=== PATIENT | male | born 1985 | race Caucasian/White ===

== ENCOUNTER 2019-12-30 16:49 | Emergency (ER) | payer OTHER, SELFPAY ==
--- NOTE | 2019-12-30 17:08 | PC.NURSE ---
PT refusing to change lead, pt demanding to see provider. Provider notified. Pt denies SI, states he does not know why he is here. Pt admits to using drugs eariler today, will not say what he used. Pt appears intoxicated. nodding off, easily awakened.
[2019-12-30 17:18] VITALS: BP 117/69; PULSE 68; RESP 17; TEMP 36.2; O2SAT 93; BMI 26.6
--- NOTE | 2019-12-30 17:22 | PC.NURSE ---
Report given to Mary COLLINS, pt moved to main ed.
--- NOTE | 2019-12-30 17:27 | PC.NURSE ---
pt moved from pod to 6h pt slightly drowsy at this time, but alert. pt states that he relapsed today using heroin after a argument with his girlfriend, pt sates using few bags of heroin denies si/hi. just having a bad day.
--- NOTE | 2019-12-30 17:31 | ED.PSYCH ---
HPI - Psych General Chief Complaint: Psychiatric Symptoms Stated Complaint: CRISIS Time Seen by Provider: 12/30/19 17:25 Source: patient Mode of arrival: EMS Limitations: no limitations History of Present Illness HPI Narrative: 34-year-old male presenting to the ED after his sister called the ambulance reporting that she was worried about him overdose seen on drugs after the the patient relapsed from being sober for 6 months. Reports that he relapsed due to recent separation with his girlfriend. 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 Reports he can stay with a friend august. Denies any SI/HI/auditory or visual hallucinations thoughts of self-injury. Related Data Allergies Allergy/AdvReac Type Severity Reaction Status Date / Time No Known Allergies Allergy Unverified 11/19/19 15:43 Review of Systems Review of Systems: Constitutional : No Fever, No Chills ENT/Mouth : No Ear Pain, No Nasal Congestion, No sore throat Eyes: No Eye Pain, No Swelling, No Redness Cardiovascular : No Chest Pain, No SOB Respiratory : No Cough, No Sputum, No Dyspnea Gastrointestinal : No ingestions, No Nausea, No Vomiting, No Diarrhea, No Hematochezia, No Melena Genitourinary : No Dysuria, No Urinary Frequency, No Hematuria Musculoskeletal : No Myalgias Skin : No Skin Lesions, No rash Neuro : No Weakness, No Numbness, No Paresthesias, No Dizziness, No Headache Psych : No Anxiety, No Depression, No SI/HI, No AVH, No thoughts of self injury Heme/Lymph: No Lymphadenopathy Endocrine : No Polyuria, No Polydipsia Yes all other systems are reviewed and are negative [facility] Past Medical History Attestation statement: The following information was validated with the patient. Medical History No known health problems Social History Social History Advance Directives: No Advance Directives Information Provided: Yes Physical Exam Vital Signs: Vital Signs: Vital Signs Temp Pulse Resp BP Pulse Ox 12/30/19 17:18 97.1 F 68 17 117/69 93 Body Mass Index 26.6 vital signs have been reviewed as normal and appeared to be correct. Blood pressure normal. Heart rate normal. Respiration rate normal. Temperature normal. Oxygen saturation normal. Appearance: Alert. Oriented X3. No acute distress. Head: Normal external exam. Normocephalic. Atraumatic. No Askew signs noted. No raccoon eyes noted Eyes: PERRLA. EOMI. Conjunctiva and sclera normal. Eyelids normal. ENT: EAC normal. TM's Normal. Pharynx normal. Uvula midline. Moist mucous membranes. No trismus noted. No drooling noted. No muffled voice noted. Neck: Normal inspection. Neck supple. FROM. No adenopathy. Thyroid Normal. No meningeal signs. No neck mass noted. CVS: Normal heart rate and rhythm. Heart sound normal. No murmurs noted. Pulses normal throughout. Respiratory: No respiratory distress. Painless inspiration. Breath sounds normal. No wheezes/rales/rhonchi noted. Chest nontender. No accessory muscle usage noted or decreased air movement noted. Abdomen: Soft and nontender. Bowel sounds normal in all 4 quadrants. No distention noted. No organomegaly noted. No visible injury noted. Back: No CVA tenderness. Full range of motion noted. Skin: Skin warm and dry. Normal skin color. Normal skin turgor. No rashes/lesions/lacerations noted. Extremities: No lower extremity edema. Extremities exhibit normal range of motion. Extremities nontender. Neuro: Oriented X 3. No motor deficit. No sensory deficit. Reflexes normal. Course Course Course Narrative: - 34-year-old male presenting to the ED after his sister called the ambulance reporting that she was worried about him overdose seen on drugs after the the patient relapsed from being sober for 6 months. Reports that he relapsed due to recent separation with his girlfriend. 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 Reports he can stay with a friend [employer]. Denies any SI/HI/auditory or visual hallucinations thoughts of self-injury. - I explained to the patient that due to him having to go to work at 18:00 tonight and denying any SI/HI/auditory visual change or thoughts of self-injury. Appears clinically sober. I will discharge him at this time although he returns we will [address] 12 him. Patient understands agrees with this plan. MDM - Psych Restraints Face to Face Assessment: Face to Face Assessment: Current Situation: After assessment of the patient, a review of the pertinent medical record and a discussion with nursing staff, I feel the patient requires a restrain intervention. Reaction To: [] Medical Condition: [] Behavioral State: [] Continued Need: []
== END 2019-12-30 17:40 | disposition home or self-care (01) ==
PROVIDERS: Emergency Provider Internal Medicine; PCP Internal Medicine
DX: F43.0 Acute stress reaction (principal)
CPT/HCPCS: 99282; 99284

== ENCOUNTER 2022-04-23 19:01 | Emergency (ER) | payer OTHER, SELFPAY ==
[2022-04-23 19:44] VITALS: BP 133/91; PULSE 79; RESP 16; TEMP 36.7; O2SAT 98; BMI 25.0
--- NOTE | 2022-04-23 19:45 | ED.PSYCH ---
HPI - Psych General Chief Complaint: Psychiatric Symptoms <CORINNA Driscoll - Last Filed: 04/23/22 19:53> Stated Complaint: crisis <CORINNA Driscoll - Last Filed: 04/23/22 19:53> Time Seen by Provider: 04/23/22 20:12 <CORINNA Driscoll - Last Filed: 04/23/22 19:53> Source: patient <CORINNA Morales - Last Filed: 04/23/22 21:24> Mode of arrival: ambulatory <CORINNA Morales - Last Filed: 04/23/22 21:24> Limitations: no limitations <CORINNA Morales Last Filed: 04/23/22 21:24> History of Present Illness HPI Narrative: A 36-year-old male history of homelessness, anxiety, depression, history of hepatitis C status post treatment, insomnia, PTSD, polysubstance abuse with IV drug abuse last use fentanyl this morning, history of suicidal ideation with attempts presenting to the emergency department with anxiety, depression, suicidal ideation with plan to overdose on fentanyl. Patient tells me that this is triggered by increasing life stressors, patient tells me ?I lost everything ?, he tells me he has been in and out of detox centers, he has been [address] multiple times, he tells me he has no family or support system. Patient reports using opiates however denies alcohol and tobacco use. Patient denies visual, auditory and tactile hallucinations. Denies homicidal ideation. Denies medical complaints at this time <CORINNA Morales Last Filed: 04/23/22 21:24> Related Data Home Medications: Home Medications Medication Instructions Recorded Confirmed lamotrigine 200 mg tablet 1 tab PO DAILY 04/23/22 04/23/22 mirtazapine 15 mg tablet 1 tab PO BEDTIME 04/23/22 04/23/22 trazodone 50 mg tablet 2 tab PO BEDTIME 04/23/22 04/23/22 Previous Rx's Medication Instructions Recorded lamotrigine 200 mg tablet 200 mg PO DAILY #30 tabs 04/24/22 (Lamictal) mirtazapine 15 mg tablet (Remeron) 15 mg PO BEDTIME #30 tabs 04/24/22 trazodone 100 mg tablet 100 mg PO BEDTIME #30 tabs 04/24/22 <CORINNA Driscoll - Last Filed: 04/23/22 19:53> Allergies/Adverse Reactions: Allergies Allergy/AdvReac Type Severity Reaction Status Date / Time No Known Allergies Allergy Verified 04/23/22 19:49 <CORINNA Driscoll - Last Filed: 04/23/22 19:53> Review of Systems Review of Systems: Constitutional : No Weight loss, No Fever, No Chills, No Fatigue, No Malaise ENT/Mouth : No sore throat, No Rhinorrhea Eyes: No Eye Pain, No Swelling, No Redness Cardiovascular : No Chest Pain, No SOB, No Dyspnea on Exertion, No Orthopnea, No Edema, No Palpitations Respiratory : No Cough, No Sputum, No Wheezing Gastrointestinal : No Nausea, No Vomiting, No Diarrhea, No Constipation, No abdominal Pain, No Hematochezia, No Melena Genitourinary : No Dysuria, No Urinary Frequency, No Hematuria, Musculoskeletal : No joint pain, No Myalgias, No Joint Swelling Skin : No Skin Lesions, No rash Neuro : No Weakness, No Numbness, No Dizziness, No Headache Psych : + Anxiety/Panic, + Depression, + SI, No HI All other systems reviewed and are negative <CORINNA Morales - Last Filed: 04/23/22 21:24> Yes all other systems are reviewed and are negative <CORINNA Morales - Last Filed: 04/23/22 21:24> [facility] Past Medical History Attestation statement: The following information was validated with the patient. <CORINNA Morales - Last Filed: 04/23/22 21:24> Source: old records reviewed and nursing notes reviewed <CORINNA Morales - Last Filed: 04/23/22 21:24> Medical History: Medical History No known health problems <CORINNA Driscoll - Last Filed: 04/23/22 19:53> Social History Social History: Social History Advance Directives: No Advance Directives Information Provided: Yes Healthcare Proxy: No Guardian: No <CORINNA Driscoll - Last Filed: 04/23/22 19:53> Physical Exam Vital Signs: Vital Signs: Last Vital Signs Temp 97.7 F 04/24/22 07:55 Pulse 62 04/24/22 07:55 Resp 12 04/24/22 07:55 BP 129/88 04/24/22 07:55 Pulse Ox 96 04/24/22 07:55 O2 Del Method 04/24/22 07:55 BMI result Body Mass Index 25.0 <CORINNA Driscoll - Last Filed: 04/23/22 19:53> Vital Signs: Last Vital Signs Temp 97.7 F 04/24/22 07:55 Pulse 62 04/24/22 07:55 Resp 12 04/24/22 07:55 BP 129/88 04/24/22 07:55 Pulse Ox 96 04/24/22 07:55 O2 Del Method 04/24/22 07:55 BMI result Body Mass Index 25.0 vss <CORINNA Morales - Last Filed: 04/23/22 21:24> Vital Signs: Last Vital Signs Temp 97.7 F 04/24/22 07:55 Pulse 62 04/24/22 07:55 Resp 12 04/24/22 07:55 BP 129/88 04/24/22 07:55 Pulse Ox 96 04/24/22 07:55 O2 Del Method 04/24/22 07:55 BMI result Body Mass Index 25.0 <Chadwick Ferrell MD - Last Filed: 04/24/22 11:23> Appearance: Alert.? Oriented X3.? No acute distress.? Head: Normocephalic, atraumatic, no step-offs or deformities Eyes: Pupils equal, round and reactive to light.? ENT: Pharynx normal.? Neck: Normal inspection.? Neck supple.? CVS: Normal heart rate and rhythm.? Pulses normal.? Respiratory: No respiratory distress.? Breath sounds normal.? Abdomen: Soft and nontender.? Skin: Skin warm and dry.? Normal skin color.? Normal skin turgor.? Extremities: No lower extremity edema.? No calf ttp. 5/5 strength to bilateral upper and lower extremities Neuro: Oriented X 3.? No motor deficit.? No sensory deficit. CN 2-12 intact <CORINNA Morales - Last Filed: 04/23/22 21:24> Course Course Course Narrative: RME - 36 y/o homeless male with history of anxiety/depression, history of SI with attempts in the past, hepatitis C s/p treatment, insomnia, PTSD, polysubstance w/ IVDA last used fentanyl this morning presents to the ER with SI with plan to intentionally overdose. Last used fentanyl this morning. Stopped taking all of his psych meds about a month ago. Just got out of detox last and now feeling more hopeless and helpless after he couldn't be placed into a [facility] rehab. VSS in triage. Labs ordered for medical clearance. Will need to be seen by CARE team. <CORINNA Driscoll - Last Filed: 04/23/22 19:53> Reevaluation(s) Reevaluation #1: CBC appears to be around patient's baseline. Chemistry with no acute electrolyte abnormalities requiring intervention. Urine toxicology positive for opiates, fentanyl, cocaine. Ethanol negative. Patient COVID negative At this time patient will be placed in observation to allow more time to be evaluated by the behavioral health team. At time observation was started patient common cooperative no acute distress will continue to monitor <CORINNA Morales - Last Filed: 04/23/22 21:24> Time: 21:23 <CORINNA Morales - Last Filed: 04/23/22 21:24> Reevaluation #2: seen by crisis will go to detox <Chadwick Ferrell MD - Last Filed: 04/24/22 11:23> Time: 11:23 <Chadwick Ferrell MD - Last Filed: 04/24/22 11:23> Medical Decision Making Medical Decision Making MDM Narrative: 36-year-old male presents with suicidal ideation with anxiety and depression times a few weeks worsening over the past few days. Plan to overdose on fentanyl. Physical examination benign Likely recurrent depression and anxiety. Unlikely metabolic disturbances. Plan medical clearance evaluation by behavioral health team <CORINNA Morales - Last Filed: 04/23/22 21:24> Differential Diagnosis Differential Diagnoses: The differential diagnosis associated with the presentation includes <CORINNA Morales - Last Filed: 04/23/22 21:24> Likely recurrent depression and anxiety. Unlikely metabolic disturbances. <CORINNA Morales - Last Filed: 04/23/22 21:24> Admission/Observation Consideration of admission/observation: Escalation of care including admission/observation considered <CORINNA Morales - Last Filed: 04/23/22 21:24> Consult Healthcare Provider Management of the patient was discussed with: Behavioral Health Provider <CORINNA Morales - Last Filed: 04/23/22 21:24> Lab Data MDM Lab Attestation statement: I reviewed the patient's lab results. <CORINNA Morales - Last Filed: 04/23/22 21:24> Result Diagrams: 04/23/22 20:53 04/23/22 20:53 <CORINNA Driscoll - Last Filed: 04/23/22 19:53> Labs: Lab Results 04/23/22 04/23/22 04/23/22 Range/Units 20:36 20:36 20:53 WBC 9.9 (4.8-10.8) X10*3/uL RBC 4.05 L (4.60-5.80) X10*6/uL Hgb 12.0 L (14.0-18.0) g/dl Hct 36.0 L (42.0-52.0) % MCV 88.9 (80.0-98.0) fL MCH 29.6 (27.0-33.0) pg MCHC 33.3 (31.0-36.0) g/dl RDW 13.7 (11.0-16.0) % Plt Count 204 (160-400) X10*3/uL MPV 8.7 L (9.4-12.4) fL Immature Gran % (Auto) 0.2 (0.0-0.4) % Neut % (Auto) 48.8 (45-73) % Lymph % (Auto) 39.7 (20-40) % Faulkner % (Auto) 9.5 (2-11) % Eos % (Auto) 1.2 (0-4) % Baso % (Auto) 0.6 (0-2) % Lymph # (Auto) 3.9 (1.2-4.9) X10*3/uL Faulkner # (Auto) 0.9 (0.1-1.2) X10*3/uL Eos # (Auto) 0.1 (0.0-0.4) X10*3/uL Baso # (Auto) 0.1 (0.0-0.2) X10*3/uL Abs Immat Gran (auto) 0.02 (0.00-0.03) X10*3/uL Absolute Neuts (auto) 4.8 (2.0-8.3) x10*3/uL Absolute Nucleated RBC 0.000 (0.0-0.012) X10*3/uL Nucleated RBC % (auto) 0.0 (0.0-0.2) /100WBC Sodium (135-145) mmol/L Potassium (3.3-5.1) mmol/L Chloride (96-108) mmol/L Carbon Dioxide (22-29) mmol/L Anion Gap (12-20) BUN (9-16) mg/dL Creatinine (0.5-1.4) mg/dL Estim Creat Clear Calc Estimated GFR Random Glucose (60-115) mg/dL Calcium (8.4-10.2) mg/dL Magnesium (1.6-2.6) mg/dL Total Bilirubin (0.0-1.0) mg/dL Direct Bilirubin (0.0-0.5) mg/dL AST (5-37) U/L ALT (0-40) U/L Alkaline Phosphatase (39-117) U/L Total Protein (6.5-8.0) g/dL Albumin (3.5-5.0) g/dL Urine Opiates Screen POSITIVE H (Not Detect) Urine Fentanyl Screen POSITIVE H (Not Detect) Ur Barbiturates Screen Not Detected (Not Detect) Ur Phencyclidine Scrn Not Detected (Not Detect) Ur Amphetamines Screen Not Detected (Not Detect) U Benzodiazepines Scrn Not Detected (Not Detect) Urine Cocaine Screen POSITIVE H (Not Detect) U Marijuana (THC) Screen Not Detected (Not Detect) Ethyl Alcohol mg/dL COVID-19 (DANILO) Negative (Negative) COVID-19 Clin Com See Note 02/20/23 Range/Units 20:53 WBC (4.8-10.8) X10*3/uL RBC (4.60-5.80) X10*6/uL Hgb (14.0-18.0) g/dl Hct (42.0-52.0) % MCV (80.0-98.0) fL MCH (27.0-33.0) pg MCHC (31.0-36.0) g/dl RDW (11.0-16.0) % Plt Count (160-400) X10*3/uL MPV (9.4-12.4) fL Immature Gran % (Auto) (0.0-0.4) % Neut % (Auto) (45-73) % Lymph % (Auto) (20-40) % Faulkner % (Auto) (2-11) % Eos % (Auto) (0-4) % Baso % (Auto) (0-2) % Lymph # (Auto) (1.2-4.9) X10*3/uL Faulkner # (Auto) (0.1-1.2) X10*3/uL Eos # (Auto) (0.0-0.4) X10*3/uL Baso # (Auto) (0.0-0.2) X10*3/uL Abs Immat Gran (auto) (0.00-0.03) X10*3/uL Absolute Neuts (auto) (2.0-8.3) x10*3/uL Absolute Nucleated RBC (0.0-0.012) X10*3/uL Nucleated RBC % (auto) (0.0-0.2) /100WBC Sodium 140 (135-145) mmol/L Potassium 3.8 (3.3-5.1) mmol/L Chloride 100 (96-108) mmol/L Carbon Dioxide 31 H (22-29) mmol/L Anion Gap 13 (12-20) BUN 9 (9-16) mg/dL Creatinine 0.69 (0.5-1.4) mg/dL Estim Creat Clear Calc 145.9 Estimated GFR > 60 Random Glucose 94 (60-115) mg/dL Calcium 9.0 (8.4-10.2) mg/dL Magnesium 1.7 (1.6-2.6) mg/dL Total Bilirubin 1.5 H (0.0-1.0) mg/dL Direct Bilirubin 0.4 (0.0-0.5) mg/dL AST 17 (5-37) U/L ALT 13 (0-40) U/L Alkaline Phosphatase 60 (39-117) U/L Total Protein 6.0 L (6.5-8.0) g/dL Albumin 3.9 (3.5-5.0) g/dL Urine Opiates Screen (Not Detect) Urine Fentanyl Screen (Not Detect) Ur Barbiturates Screen (Not Detect) Ur Phencyclidine Scrn (Not Detect) Ur Amphetamines Screen (Not Detect) U Benzodiazepines Scrn (Not Detect) Urine Cocaine Screen (Not Detect) U Marijuana (THC) Screen (Not Detect) Ethyl Alcohol < 10 mg/dL COVID-19 (DANILO) (Negative) COVID-19 Clin Com <CORINNA Driscoll - Last Filed: 04/23/22 19:53> Lab Results 04/23/22 04/23/22 04/23/22 Range/Units 20:36 20:36 20:53 WBC 9.9 (4.8-10.8) X10*3/uL RBC 4.05 L (4.60-5.80) X10*6/uL Hgb 12.0 L (14.0-18.0) g/dl Hct 36.0 L (42.0-52.0) % MCV 88.9 (80.0-98.0) fL MCH 29.6 (27.0-33.0) pg MCHC 33.3 (31.0-36.0) g/dl RDW 13.7 (11.0-16.0) % Plt Count 204 (160-400) X10*3/uL MPV 8.7 L (9.4-12.4) fL Immature Gran % (Auto) 0.2 (0.0-0.4) % Neut % (Auto) 48.8 (45-73) % Lymph % (Auto) 39.7 (20-40) % Faulkner % (Auto) 9.5 (2-11) % Eos % (Auto) 1.2 (0-4) % Baso % (Auto) 0.6 (0-2) % Lymph # (Auto) 3.9 (1.2-4.9) X10*3/uL Faulkner # (Auto) 0.9 (0.1-1.2) X10*3/uL Eos # (Auto) 0.1 (0.0-0.4) X10*3/uL Baso # (Auto) 0.1 (0.0-0.2) X10*3/uL Abs Immat Gran (auto) 0.02 (0.00-0.03) X10*3/uL Absolute Neuts (auto) 4.8 (2.0-8.3) x10*3/uL Absolute Nucleated RBC 0.000 (0.0-0.012) X10*3/uL Nucleated RBC % (auto) 0.0 (0.0-0.2) /100WBC Sodium (135-145) mmol/L Potassium (3.3-5.1) mmol/L Chloride (96-108) mmol/L Carbon Dioxide (22-29) mmol/L Anion Gap (12-20) BUN (9-16) mg/dL Creatinine (0.5-1.4) mg/dL Estim Creat Clear Calc Estimated GFR Random Glucose (60-115) mg/dL Calcium (8.4-10.2) mg/dL Magnesium (1.6-2.6) mg/dL Total Bilirubin (0.0-1.0) mg/dL Direct Bilirubin (0.0-0.5) mg/dL AST (5-37) U/L ALT (0-40) U/L Alkaline Phosphatase (39-117) U/L Total Protein (6.5-8.0) g/dL Albumin (3.5-5.0) g/dL Urine Opiates Screen POSITIVE H (Not Detect) Urine Fentanyl Screen POSITIVE H (Not Detect) Ur Barbiturates Screen Not Detected (Not Detect) Ur Phencyclidine Scrn Not Detected (Not Detect) Ur Amphetamines Screen Not Detected (Not Detect) U Benzodiazepines Scrn Not Detected (Not Detect) Urine Cocaine Screen POSITIVE H (Not Detect) U Marijuana (THC) Screen Not Detected (Not Detect) Ethyl Alcohol mg/dL COVID-19 (DANILO) Negative (Negative) COVID-19 Clin Com See Note 04/23/22 Range/Units 20:53 WBC (4.8-10.8) X10*3/uL RBC (4.60-5.80) X10*6/uL Hgb (14.0-18.0) g/dl Hct (42.0-52.0) % MCV (80.0-98.0) fL MCH (27.0-33.0) pg MCHC (31.0-36.0) g/dl RDW (11.0-16.0) % Plt Count (160-400) X10*3/uL MPV (9.4-12.4) fL Immature Gran % (Auto) (0.0-0.4) % Neut % (Auto) (45-73) % Lymph % (Auto) (20-40) % Faulkner % (Auto) (2-11) % Eos % (Auto) (0-4) % Baso % (Auto) (0-2) % Lymph # (Auto) (1.2-4.9) X10*3/uL Faulkner # (Auto) (0.1-1.2) X10*3/uL Eos # (Auto) (0.0-0.4) X10*3/uL Baso # (Auto) (0.0-0.2) X10*3/uL Abs Immat Gran (auto) (0.00-0.03) X10*3/uL Absolute Neuts (auto) (2.0-8.3) x10*3/uL Absolute Nucleated RBC (0.0-0.012) X10*3/uL Nucleated RBC % (auto) (0.0-0.2) /100WBC Sodium 140 (135-145) mmol/L Potassium 3.8 (3.3-5.1) mmol/L Chloride 100 (96-108) mmol/L Carbon Dioxide 31 H (22-29) mmol/L Anion Gap 13 (12-20) BUN 9 (9-16) mg/dL Creatinine 0.69 (0.5-1.4) mg/dL Estim Creat Clear Calc 145.9 Estimated GFR > 60 Random Glucose 94 (60-115) mg/dL Calcium 9.0 (8.4-10.2) mg/dL Magnesium 1.7 (1.6-2.6) mg/dL Total Bilirubin 1.5 H (0.0-1.0) mg/dL Direct Bilirubin 0.4 (0.0-0.5) mg/dL AST 17 (5-37) U/L ALT 13 (0-40) U/L Alkaline Phosphatase 60 (39-117) U/L Total Protein 6.0 L (6.5-8.0) g/dL Albumin 3.9 (3.5-5.0) g/dL Urine Opiates Screen (Not Detect) Urine Fentanyl Screen (Not Detect) Ur Barbiturates Screen (Not Detect) Ur Phencyclidine Scrn (Not Detect) Ur Amphetamines Screen (Not Detect) U Benzodiazepines Scrn (Not Detect) Urine Cocaine Screen (Not Detect) U Marijuana (THC) Screen (Not Detect) Ethyl Alcohol < 10 mg/dL COVID-19 (DANILO) (Negative) COVID-19 Clin Com <CORINNA Morales - Last Filed: 04/23/22 21:24> Lab Results 04/23/22 04/23/22 04/23/22 Range/Units 20:36 20:36 20:53 WBC 9.9 (4.8-10.8) X10*3/uL RBC 4.05 L (4.60-5.80) X10*6/uL Hgb 12.0 L (14.0-18.0) g/dl Hct 36.0 L (42.0-52.0) % MCV 88.9 (80.0-98.0) fL MCH 29.6 (27.0-33.0) pg MCHC 33.3 (31.0-36.0) g/dl RDW 13.7 (11.0-16.0) % Plt Count 204 (160-400) X10*3/uL MPV 8.7 L (9.4-12.4) fL Immature Gran % (Auto) 0.2 (0.0-0.4) % Neut % (Auto) 48.8 (45-73) % Lymph % (Auto) 39.7 (20-40) % Faulkner % (Auto) 9.5 (2-11) % Eos % (Auto) 1.2 (0-4) % Baso % (Auto) 0.6 (0-2) % Lymph # (Auto) 3.9 (1.2-4.9) X10*3/uL Faulkner # (Auto) 0.9 (0.1-1.2) X10*3/uL Eos # (Auto) 0.1 (0.0-0.4) X10*3/uL Baso # (Auto) 0.1 (0.0-0.2) X10*3/uL Abs Immat Gran (auto) 0.02 (0.00-0.03) X10*3/uL Absolute Neuts (auto) 4.8 (2.0-8.3) x10*3/uL Absolute Nucleated RBC 0.000 (0.0-0.012) X10*3/uL Nucleated RBC % (auto) 0.0 (0.0-0.2) /100WBC Sodium (135-145) mmol/L Potassium (3.3-5.1) mmol/L Chloride (96-108) mmol/L Carbon Dioxide (22-29) mmol/L Anion Gap (12-20) BUN (9-16) mg/dL Creatinine (0.5-1.4) mg/dL Estim Creat Clear Calc Estimated GFR Random Glucose (60-115) mg/dL Calcium (8.4-10.2) mg/dL Magnesium (1.6-2.6) mg/dL Total Bilirubin (0.0-1.0) mg/dL Direct Bilirubin (0.0-0.5) mg/dL AST (5-37) U/L ALT (0-40) U/L Alkaline Phosphatase (39-117) U/L Total Protein (6.5-8.0) g/dL Albumin (3.5-5.0) g/dL Urine Opiates Screen POSITIVE H (Not Detect) Urine Fentanyl Screen POSITIVE H (Not Detect) Ur Barbiturates Screen Not Detected (Not Detect) Ur Phencyclidine Scrn Not Detected (Not Detect) Ur Amphetamines Screen Not Detected (Not Detect) U Benzodiazepines Scrn Not Detected (Not Detect) Urine Cocaine Screen POSITIVE H (Not Detect) U Marijuana (THC) Screen Not Detected (Not Detect) Ethyl Alcohol mg/dL COVID-19 (DANILO) Negative (Negative) COVID-19 Clin Com See Note 04/23/22 Range/Units 20:53 WBC (4.8-10.8) X10*3/uL RBC (4.60-5.80) X10*6/uL Hgb (14.0-18.0) g/dl Hct (42.0-52.0) % MCV (80.0-98.0) fL MCH (27.0-33.0) pg MCHC (31.0-36.0) g/dl RDW (11.0-16.0) % Plt Count (160-400) X10*3/uL MPV (9.4-12.4) fL Immature Gran % (Auto) (0.0-0.4) % Neut % (Auto) (45-73) % Lymph % (Auto) (20-40) % Faulkner % (Auto) (2-11) % Eos % (Auto) (0-4) % Baso % (Auto) (0-2) % Lymph # (Auto) (1.2-4.9) X10*3/uL Faulkner # (Auto) (0.1-1.2) X10*3/uL Eos # (Auto) (0.0-0.4) X10*3/uL Baso # (Auto) (0.0-0.2) X10*3/uL Abs Immat Gran (auto) (0.00-0.03) X10*3/uL Absolute Neuts (auto) (2.0-8.3) x10*3/uL Absolute Nucleated RBC (0.0-0.012) X10*3/uL Nucleated RBC % (auto) (0.0-0.2) /100WBC Sodium 140 (135-145) mmol/L Potassium 3.8 (3.3-5.1) mmol/L Chloride 100 (96-108) mmol/L Carbon Dioxide 31 H (22-29) mmol/L Anion Gap 13 (12-20) BUN 9 (9-16) mg/dL Creatinine 0.69 (0.5-1.4) mg/dL Estim Creat Clear Calc 145.9 Estimated GFR > 60 Random Glucose 94 (60-115) mg/dL Calcium 9.0 (8.4-10.2) mg/dL Magnesium 1.7 (1.6-2.6) mg/dL Total Bilirubin 1.5 H (0.0-1.0) mg/dL Direct Bilirubin 0.4 (0.0-0.5) mg/dL AST 17 (5-37) U/L ALT 13 (0-40) U/L Alkaline Phosphatase 60 (39-117) U/L Total Protein 6.0 L (6.5-8.0) g/dL Albumin 3.9 (3.5-5.0) g/dL Urine Opiates Screen (Not Detect) Urine Fentanyl Screen (Not Detect) Ur Barbiturates Screen (Not Detect) Ur Phencyclidine Scrn (Not Detect) Ur Amphetamines Screen (Not Detect) U Benzodiazepines Scrn (Not Detect) Urine Cocaine Screen (Not Detect) U Marijuana (THC) Screen (Not Detect) Ethyl Alcohol < 10 mg/dL COVID-19 (DANILO) (Negative) COVID-19 Clin Com <Chadwick Ferrell MD - Last Filed: 04/24/22 11:23> Core Measures AMI core measures followed: Yes <CORINNA Morales - Last Filed: 04/23/22 21:24> Measure exclusions: not indicated <CORINNA Morales - Last Filed: 04/23/22 21:24> Critical Care Time Critical Care Time Critical Care Time: No <CORINNA Morales - Last Filed: 04/23/22 21:24> Discharge Plan Discharge Clinical Impression: Depression <CORINNA Driscoll - Last Filed: 04/23/22 19:53> Patient Disposition: Home, Self-Care <CORINNA Driscoll - Last Filed: 04/23/22 19:53> Additional Instructions: Go to [facility] <CORINNA Driscoll - Last Filed: 04/23/22 19:53> Prescriptions: New lamotrigine [Lamictal] 200 mg tablet 200 mg PO DAILY Qty: 30 0RF mirtazapine [Remeron] 15 mg tablet 15 mg PO BEDTIME Qty: 30 0RF trazodone 100 mg tablet 100 mg PO BEDTIME Qty: 30 0RF No Action lamotrigine 200 mg tablet 1 tab PO DAILY trazodone 50 mg tablet 2 tab PO BEDTIME mirtazapine 15 mg tablet 1 tab PO BEDTIME <CORINNA Driscoll Last Filed: 04/23/22 19:53> Interventions: [place]-Suicide Risk Severity Scale Last Done: 04/24/22 04:29 ED Discharge Assessment Last Done: 04/24/22 12:23 <CORINNA Driscoll - Last Filed: 04/23/22 19:53> Discharge Date/Time: 04/24/22 12:24 <CORINNA Driscoll - Last Filed: 04/23/22 19:53>
--- NOTE | 2022-04-23 20:39 | PC.NURSE ---
pt changed over, belongings secured, tech at bedside obtaining labs/urine. 1:1 at bedside.
--- NOTE | 2022-04-23 20:55 | ED_ITS ---
HPI - Psych General Chief Complaint: Psychiatric Symptoms Stated Complaint: crisis Time Seen by Provider: 04/23/22 20:12 Source: patient Mode of arrival: ambulatory Limitations: no limitations History of Present Illness HPI Narrative: 36-year-old male history of opiate use disorder presents to the emergency department with suicidal ideation with plan to overdose on fentanyl Related Data Home Medications ?Medication ?Instructions ?Recorded ?Confirmed lamotrigine 200 mg tablet 1 tab PO DAILY 04/23/22 04/23/22 mirtazapine 15 mg tablet 1 tab PO BEDTIME 04/23/22 04/23/22 trazodone 50 mg tablet 2 tab PO BEDTIME 04/23/22 04/23/22 Previous Rx's ?Medication ?Instructions ?Recorded lamotrigine 200 mg tablet 200 mg PO DAILY #30 tabs 04/24/22 (Lamictal) mirtazapine 15 mg tablet (Remeron) 15 mg PO BEDTIME #30 tabs 04/24/22 trazodone 100 mg tablet 100 mg PO BEDTIME #30 tabs 04/24/22 Allergies Allergy/AdvReac Type Severity Reaction Status Date / Time No Known Allergies Allergy Verified 04/23/22 19:49 [facility] Past Medical History Medical History No known health problems Social History Social History Alcohol intake: current Substance Use Type: Heroin Advance Directives: No Advance Directives Information Provided: Yes Physical Exam 2 Vital Signs: Vital Signs: Last Vital Signs Temp 97.7 F 04/24/22 07:55 Pulse 62 04/24/22 07:55 Resp 12 04/24/22 07:55 BP 129/88 04/24/22 07:55 Pulse Ox 96 04/24/22 07:55 O2 Del Method Room Air 04/24/22 07:55 BMI result Body Mass Index 25.0 Medical Decision Making Lab Data 04/23/22 20:53 04/23/22 20:53 Labs: Lab Results 04/23/22 04/23/22 Range/Units 20:36 20:53 WBC 9.9 (4.8-10.8) X10*3/uL RBC 4.05 L (4.60-5.80) X10*6/uL Hgb 12.0 L (14.0-18.0) g/dl Hct 36.0 L (42.0-52.0) % MCV 88.9 (80.0-98.0) fL MCH 29.6 (27.0-33.0) pg MCHC 33.3 (31.0-36.0) g/dl RDW 13.7 (11.0-16.0) % Plt Count 204 (160-400) X10*3/uL MPV 8.7 L (9.4-12.4) fL Immature Gran % (Auto) 0.2 (0.0-0.4) % Neut % (Auto) 48.8 (45-73) % Lymph % (Auto) 39.7 (20-40) % [place] % (Auto) 9.5 (2-11) % Eos % (Auto) 1.2 (0-4) % Baso % (Auto) 0.6 (0-2) % Lymph # (Auto) 3.9 (1.2-4.9) X10*3/uL [place] # (Auto) 0.9 (0.1-1.2) X10*3/uL Eos # (Auto) 0.1 (0.0-0.4) X10*3/uL Baso # (Auto) 0.1 (0.0-0.2) X10*3/uL Abs Immat Gran (auto) 0.02 (0.00-0.03) X10*3/uL Absolute Neuts (auto) 4.8 (2.0-8.3) x10*3/uL Absolute Nucleated RBC 0.000 (0.0-0.012) X10*3/uL Nucleated RBC % (auto) 0.0 (0.0-0.2) /100WBC Sodium 140 (135-145) mmol/L Potassium 3.8 (3.3-5.1) mmol/L Chloride 100 (96-108) mmol/L Carbon Dioxide 31 H (22-29) mmol/L Anion Gap 13 (12-20) BUN 9 (9-16) mg/dL Creatinine 0.69 (0.5-1.4) mg/dL Estim Creat Clear Calc 145.9 Estimated GFR > 60 Random Glucose 94 (60-115) mg/dL Calcium 9.0 (8.4-10.2) mg/dL Magnesium 1.7 (1.6-2.6) mg/dL Total Bilirubin 1.5 H (0.0-1.0) mg/dL Direct Bilirubin 0.4 (0.0-0.5) mg/dL AST 17 (5-37) U/L ALT 13 (0-40) U/L Alkaline Phosphatase 60 (39-117) U/L Total Protein 6.0 L (6.5-8.0) g/dL Albumin 3.9 (3.5-5.0) g/dL Urine Opiates Screen POSITIVE H (Not Detect) Urine Fentanyl Screen POSITIVE H (Not Detect) Ur Barbiturates Screen Not Detected (Not Detect) Ur Phencyclidine Scrn Not Detected (Not Detect) Ur Amphetamines Screen Not Detected (Not Detect) U Benzodiazepines Scrn Not Detected (Not Detect) Urine Cocaine Screen POSITIVE H (Not Detect) U Marijuana (THC) Screen Not Detected (Not Detect) Ethyl Alcohol < 10 mg/dL COVID-19 ([facility]) Negative (Negative) COVID-19 Clin Com See Note Discharge Plan Discharge Clinical Impression: Depression Patient Disposition: Home, Self-Care Additional Instructions: Go to [facility] Prescriptions: New lamotrigine [Lamictal] 200 mg tablet 200 mg PO DAILY Qty: 30 0RF mirtazapine [Remeron] 15 mg tablet 15 mg PO BEDTIME Qty: 30 0RF trazodone 100 mg tablet 100 mg PO BEDTIME Qty: 30 0RF No Action lamotrigine 200 mg tablet 1 tab PO DAILY trazodone 50 mg tablet 2 tab PO BEDTIME mirtazapine 15 mg tablet 1 tab PO BEDTIME Interventions: [place]-Suicide Risk Severity Scale Last Done: 04/24/22 04:29 ED Discharge Assessment Last Done: 04/24/22 12:23 Discharge Date/Time: 04/24/22 12:24 Print Language: French
[2022-04-23 20:56] LABS: Amphetamine Screen Urine Not Detected (Not Detect); Barbiturates, Urine Not Detected (Not Detect); Benzodiazepines Screen Urine Not Detected (Not Detect); Cannabinoid Screen Urine Not Detected (Not Detect); Cocaine Screen Urine POSITIVE (Not Detect); Fentanyl, urine POSITIVE (Not Detect); Opiate Screen Urine POSITIVE (Not Detect); Phencyclidine Screen Urine Not Detected (Not Detect)
[2022-04-23 20:57] LABS: COVID-19 Test Negative (Negative); IDNOW Serial# 6674DD1D
[2022-04-23 20:58] LABS: MANUAL DIFF FLAG NO
[2022-04-23 20:59] LABS: Basophils Absolute Auto 0.1 X10*3/uL (0.0-0.2); Basophils Percent Auto 0.6 % (0-2); Eosinophils Absolute Auto 0.1 X10*3/uL (0.0-0.4); Eosinophils Percent Auto 1.2 % (0-4); Imm Gran Abs Auto 0.02 X10*3/uL (0.00-0.03); Imm Gran Pct Auto 0.2 % (0.0-0.4); Lymphocytes Absolute Auto 3.9 X10*3/uL (1.2-4.9); Lymphocytes Percent Auto 39.7 % (20-40); Mean Corpuscular HGB Conc 33.3 g/dl (31.0-36.0); Mean Corpuscular Hemoglobin 29.6 pg (27.0-33.0); Mean Corpuscular Volume 88.9 fL (80.0-98.0); Mean Platelet Volume 8.7 fL (9.4-12.4); Monocytes Absolute Auto 0.9 X10*3/uL (0.1-1.2); Monocytes Percent Auto 9.5 % (2-11); Neutrophils Absolute Auto 4.8 x10*3/uL (2.0-8.3); Neutrophils Percent Auto 48.8 % (45-73); Platelet Count 204 X10*3/uL (160-400); Red Blood Count 4.05 X10*6/uL (4.60-5.80); Red Cell Distribution Width 13.7 % (11.0-16.0); White Blood Count 9.9 X10*3/uL (4.8-10.8)
[2022-04-23 21:19] LABS: Alanine Aminotransferase 13 U/L (0-40); Albumin Level 3.9 g/dL (3.5-5.0); Alkaline Phosphatase 60 U/L (39-117); Anion Gap 13 (12-20); Aspartate Amino Transferase 17 U/L (5-37); Bilirubin Direct 0.4 mg/dL (0.0-0.5); Bilirubin Total 1.5 mg/dL (0.0-1.0); Blood Urea Nitrogen 9 mg/dL (9-16); Carbon Dioxide 31 mmol/L (22-29); Chloride 100 mmol/L (96-108); Creatinine Clr Calc Pharmacy 145.9; Estimated Glomerular Filt Rate > 60; Ethanol < 10 mg/dL; Glucose Random 94 mg/dL (60-115); Magnesium 1.7 mg/dL (1.6-2.6); Potassium 3.8 mmol/L (3.3-5.1); Sodium 140 mmol/L (135-145)
[2022-04-24 04:34] VITALS: BP 127/85; PULSE 64; RESP 12; TEMP 37.1; O2SAT 95
--- NOTE | 2022-04-24 07:15 | PC.NURSE ---
patient appears to remain asleep respirations are even and unlabored patient appears in no distress.
[2022-04-24 07:55] VITALS: BP 129/88; PULSE 62; RESP 12; TEMP 36.5; O2SAT 96
--- NOTE | 2022-04-24 11:24 | MHC.RECOVSUP ---
? Reason for consult: o?? Current location ?6-h o?? Identified substance use concern ?alcohol ?? Support ? Intervention o?? Community resources provided o?? Harm reduction discussion ? Plan: o?? Patient to follow up with [facility] after discharge ? Additional information: PT IS A 44YR OLD MALE WHO CAME TO THE ED FOR ALCOHOL.THIS ROLL TRUCKER WENT TO SEE PT IN THE ED. PT STATED THAT HIS FATHER JUST RECENTLY , AND IT'S BEEN HARD FOR HIM TO COPE WITH THE FATHER NOT BEING HERE. ALSO STATED THAT HE IS HAVING A HARD TIME LOOKING FOR WORK. I ASKED PT IS HE WOULD BE INTERESTED IN GOING TO TREATMENT. PT STATED NO HE RATHER GET SOME INFORMATION ON IOP. THIS ROLL TRUCKER GAVE PT RESOURCES AND INFORMATION ON WHERE TO CONNECT WITH IOP. ALSO I MADE A REFERRAL FOR A ROLL TRUCKER TOO. ?
--- NOTE | 2022-04-24 11:24 | MHC.RECOVSUP ---
? Reason for consult: o?? Current location ?6-h o?? Identified substance use concern ?alcohol ?? Support ? Intervention o?? Community resources provided o?? Harm reduction discussion ? Plan: o?? Patient to follow up with [facility] after discharge ? Additional information: PT IS A 44YR OLD MALE WHO CAME TO THE ED FOR ALCOHOL.THIS PARKING METER ATTENDANT WENT TO SEE PT IN THE ED. PT STATED THAT HIS FATHER JUST RECENTLY , AND IT'S BEEN HARD FOR HIM TO COPE WITH THE FATHER NOT BEING HERE. ALSO STATED THAT HE IS HAVING A HARD TIME LOOKING FOR WORK. I ASKED PT IS HE WOULD BE INTERESTED IN GOING TO TREATMENT. PT STATED NO HE RATHER GET SOME INFORMATION ON IOP. THIS PARKING METER ATTENDANT GAVE PT RESOURCES AND INFORMATION ON WHERE TO CONNECT WITH IOP. ALSO I MADE A REFERRAL FOR A PARKING METER ATTENDANT TOO. ?
--- NOTE | 2022-04-24 11:25 | MHC.RECOVSUP ---
? Reason for consult: o?? Current location ?6-h o?? Identified substance use concern ?alcohol ?? Support ? Intervention o?? Community resources provided o?? Harm reduction discussion ? Plan: o?? Patient to follow up with [facility] after discharge ? Additional information: PT IS A 44YR OLD MALE WHO CAME TO THE ED FOR ALCOHOL.THIS FALL INTERN WENT TO SEE PT IN THE ED. PT STATED THAT HIS FATHER JUST RECENTLY , AND IT'S BEEN HARD FOR HIM TO COPE WITH THE FATHER NOT BEING HERE. ALSO STATED THAT HE IS HAVING A HARD TIME LOOKING FOR WORK. I ASKED PT IS HE WOULD BE INTERESTED IN GOING TO TREATMENT. PT STATED NO HE RATHER GET SOME INFORMATION ON IOP. THIS FALL INTERN GAVE PT RESOURCES AND INFORMATION ON WHERE TO CONNECT WITH IOP. ALSO I MADE A REFERRAL FOR A FALL INTERN TOO. ?
== END 2022-04-24 12:24 | disposition home or self-care (01) ==
PROVIDERS: Physician Assistant; Emergency Provider Internal Medicine; PCP Physician Assistant Medical
DX: F33.1 Major depressive disorder, recurrent, moderate (principal); F11.10 Opioid abuse, uncomplicated; R45.851 Suicidal ideations; Z20.822 Contact with and (suspected) exposure to COVID-19; Z20.828 Contact with and (suspected) exposure to other viral communicable diseases; Z79.899 Other long term (current) drug therapy
CPT/HCPCS: 80048; 80076; 80307; 82077; 83735; 85025; 87635; 99284; 99285; S9485

== ENCOUNTER 2022-05-23 21:17 | Emergency (ER) | payer OTHER, SELFPAY ==
[2022-05-23 21:28] VITALS: PULSE 90; RESP 18; TEMP 36.9; O2SAT 91; BMI 22.9
--- NOTE | 2022-05-23 21:32 | ECG_ITS ---
Test Reason : OD Blood Pressure : / mmHG Vent. Rate : 080 BPM Atrial Rate : 080 BPM P-R Int : 138 ms QRS Dur : 086 ms QT Int : 400 ms P-R-T Axes : 054 052 035 degrees QTc Int : 461 ms Normal sinus rhythm Possible Left atrial enlargement Borderline ECG When compared with ECG of 14-JUN-2019 19:13, Vent. rate has decreased BY 64 BPM Referred By: Generic ED Physician Electronically Signed By:ALBARO BOLAND MD
--- NOTE | 2022-05-23 21:42 | ED.PSYCH ---
HPI - Psych General Chief Complaint: Psychiatric Symptoms Stated Complaint: Crisis Time Seen by Provider: 05/23/22 21:42 Source: patient Mode of arrival: ambulatory Limitations: no limitations History of Present Illness HPI Narrative: 36-year-old male presents for suicidal ideation, disorganization, and substance abuse. Patient would like detox. MD complaint: suicidal ideation, feels depressed and substance abuse Onset (ago): year(s) Duration: constant History of same: Yes Relieving factors: none Exacerbating factors: drug use Context: recent drug abuse and not taking psychiatric medications Associated psychiatric symptoms: depression and suicidal ideation Associated symptoms: denies other symptoms Treatments prior to arrival: none If self harm: admits thoughts of self harm Related Data Home Medications Medication Instructions Recorded Confirmed lamotrigine 200 mg tablet 1 tab PO DAILY 04/23/22 04/23/22 mirtazapine 15 mg tablet 1 tab PO BEDTIME 04/23/22 04/23/22 trazodone 50 mg tablet 2 tab PO BEDTIME 04/23/22 04/23/22 Previous Rx's Medication Instructions Recorded lamotrigine 200 mg tablet 200 mg PO DAILY #30 tabs 04/24/22 (Lamictal) mirtazapine 15 mg tablet (Remeron) 15 mg PO BEDTIME #30 tabs 04/24/22 trazodone 100 mg tablet 100 mg PO BEDTIME #30 tabs 04/24/22 Allergies Allergy/AdvReac Type Severity Reaction Status Date / Time No Known Allergies Allergy Verified 04/23/22 19:49 Review of Systems Review of Systems: Constitutional: No Fever, No Chills Cardiovascular: No Chest Pain, No SOB Respiratory: No Cough, No Dyspnea Gastrointestinal: No Nausea, No Vomiting, No Diarrhea, No abdominal Pain Genitourinary: No Dysuria, No Hematuria Musculoskeletal: No joint pain, No Myalgias, No Joint Swelling Skin: No Skin lacerations, No rash Neuro: No Weakness, No Numbness, No Paresthesias, No Loss of Consciousness, No Dizziness, No Headache Psych: Positive Anxiety/Panic, positive Depression, positive suicidal ideation, positive poly substance abuse, no HI. Yes all other systems are reviewed and are negative PMFSH Past Medical History Attestation statement: The following information was validated with the patient. Source: old records reviewed Medical History No known health problems Social History Social History Alcohol intake: current Use of substances other than those prescribed or required for medical reasons: Yes Substance Use Type: Heroin Advance Directives: No Advance Directives Information Provided: No Physical Exam Vital Signs: Vital Signs: Last Vital Signs Temp 98.4 F 05/24/22 00:07 Pulse 66 05/24/22 00:07 Resp 16 05/24/22 00:07 BP 127/69 05/24/22 00:07 Pulse Ox 97 05/24/22 00:07 O2 Del Method 05/24/22 00:07 BMI result Body Mass Index 22.9 Appearance: Alert. Oriented X3. Disheveled. Track kwok to arms and neck Eyes: Pupils equal, round and reactive to light. ENT: Pharynx normal. Neck: Normal inspection. Neck supple. CVS: Normal heart rate and rhythm. Pulses normal. Respiratory: No respiratory distress. Breath sounds normal. Abdomen: Soft and nontender. Skin: Multiple track kwok to arms and neck. Multiple bruises and wounds noted to his extremities. Extremities: Gait well-balanced well coordinated. Neuro: No motor deficit. No sensory deficit. Cranial nerves 2-12 intact. Course Course Course Narrative: 36-year-old male presents for crisis evaluation for suicidal ideation and polysubstance abuse. Patient would like detox. States that he has been using cocaine, heroin, fentanyl, zylazine, and marijuana. Patient is disheveled, suspected to be homeless. Patient has had multiple presentations for depression and substance abuse in the past. Will order labs, crisis consult, [facility]. Patient states that he is not taking his psychiatric medications, has been using multiple street drugs. The only physical complaint he has at this time is reflux. Will treat with GI cocktail. Will give Zofran as patient states he feels like he is withdrawing going to vomit. 23:30 patient has elevated white count of 18.5 which I feel is reactive. Patient does not have any significant infective process is afebrile and stable vital signs. Plan of care is for crisis consult and detox. Vision observation at this time. Medications Administered Discontinued Medications Generic Name Dose Route Start Last Admin Trade Name Freq PRN Reason Stop Dose Admin Al Hydroxide/Mg Hydroxide 30 ml 05/23/22 21:43 05/23/22 21:54 Magnesium Hydrox/Alum Hydrox 30 Ml Oral.Susp PO 05/23/22 21:44 30 ml ONCE ONE Administration Belladonna Alkaloids/Phenobarbital 10 ml 05/23/22 21:43 05/23/22 21:56 Phenobarb/Hyoscy/Atropine/Scop 10 Ml Elixir PO 05/23/22 21:44 10 ml ONCE ONE Administration Diphtheria/Tetanus/Acell Pertussis 0.5 ml 05/23/22 21:43 05/23/22 21:54 Diphth,Pertus(Acell),Tet Adult 0.5 Ml Syringe IM 05/23/22 21:44 0.5 ml .ONCE ONE Administration Lidocaine HCl 15 ml 05/23/22 21:43 05/23/22 21:54 Lidocaine Hcl Viscous 2 % 15 Ml Solution MUCOUS MEM 05/23/22 21:44 15 ml ONCE ONE Administration Ondansetron HCl 4 mg 05/23/22 21:43 05/23/22 21:55 Ondansetron Odt 4 Mg Tab.Rapdis TRANSLINGU 05/23/22 21:44 4 mg ONCE ONE Administration Medical Decision Making Differential Diagnosis Differential Diagnoses: The differential diagnosis associated with the presentation includes SI, depression, polysubstance, medication noncompliance Admission/Observation Consideration of admission/observation: Escalation of care including admission/observation considered May require M5 admission, possible inpatient detox Consult Healthcare Provider Management of the patient was discussed with: Behavioral Health Provider Lab Data MDM Lab Attestation statement: I reviewed the patient's lab results. 05/23/22 22:06 05/23/22 22:06 Labs: Lab Results 05/23/22 05/23/22 05/23/22 Range/Units 22:06 22:06 22:06 WBC 18.5 H (4.8-10.8) X10*3/uL RBC 4.45 L (4.60-5.80) X10*6/uL Hgb 13.4 L (14.0-18.0) g/dl Hct 39.2 L (42.0-52.0) % MCV 88.1 (80.0-98.0) fL MCH 30.1 (27.0-33.0) pg MCHC 34.2 (31.0-36.0) g/dl RDW 13.8 (11.0-16.0) % Plt Count 306 D (160-400) X10*3/uL MPV 8.9 L (9.4-12.4) fL Immature Gran % (Auto) 0.4 (0.0-0.4) % Neut % (Auto) 65.6 (45-73) % Lymph % (Auto) 25.2 (20-40) % [place] % (Auto) 7.6 (2-11) % Eos % (Auto) 0.8 (0-4) % Baso % (Auto) 0.4 (0-2) % Lymph # (Auto) 4.7 (1.2-4.9) X10*3/uL [place] # (Auto) 1.4 H (0.1-1.2) X10*3/uL Eos # (Auto) 0.2 (0.0-0.4) X10*3/uL Baso # (Auto) 0.1 (0.0-0.2) X10*3/uL Abs Immat Gran (auto) 0.07 H (0.00-0.03) X10*3/uL Absolute Neuts (auto) 12.1 H (2.0-8.3) x10*3/uL Absolute Nucleated RBC 0.000 (0.0-0.012) X10*3/uL Nucleated RBC % (auto) 0.0 (0.0-0.2) /100WBC Sodium 138 Cancelled (135-145) mmol/L Potassium 3.8 Cancelled (3.3-5.1) mmol/L Chloride 99 Cancelled (96-108) mmol/L Carbon Dioxide 26 Cancelled (22-29) mmol/L Anion Gap 17 Cancelled (12-20) BUN 19 H Cancelled (9-16) mg/dL Creatinine 0.96 Cancelled (0.5-1.4) mg/dL Estim Creat Clear Calc 111.2 Cancelled Estimated GFR > 60 Cancelled Random Glucose 113 Cancelled (60-115) mg/dL Calcium 9.3 Cancelled (8.4-10.2) mg/dL Total Bilirubin 2.5 H Cancelled (0.0-1.0) mg/dL AST 26 Cancelled (5-37) U/L ALT 16 Cancelled (0-40) U/L Alkaline Phosphatase 72 Cancelled (39-117) U/L Total Protein 7.0 Cancelled (6.5-8.0) g/dL Albumin 4.6 Cancelled (3.5-5.0) g/dL Urine Color Urine Appearance Urine pH (5.0-9.0) Ur Specific [place] (1.005-1.025) Urine Protein (Neg-Trace) mg/dL Urine Glucose (UA) (Negative) mg/dL Urine Ketones (Negative) mg/dL Urine Blood (Negative) Urine Nitrite (Negative) Ur Leukocyte Esterase (Negative) Urine RBC (0-2) /HPF Urine WBC (0-5) /HPF Ur Squamous Epith Cells (0-2) /HPF Urine Bacteria (None Seen) Hyaline Casts (0-2) /LPF Urine Opiates Screen (Not Detect) Urine Fentanyl Screen (Not Detect) Ur Barbiturates Screen (Not Detect) Ur Phencyclidine Scrn (Not Detect) Ur Amphetamines Screen (Not Detect) U Benzodiazepines Scrn (Not Detect) Urine Cocaine Screen (Not Detect) U Marijuana (THC) Screen (Not Detect) 05/24/22 05/24/22 Range/Units 00:57 00:57 WBC (4.8-10.8) X10*3/uL RBC (4.60-5.80) X10*6/uL Hgb (14.0-18.0) g/dl Hct (42.0-52.0) % MCV (80.0-98.0) fL MCH (27.0-33.0) pg MCHC (31.0-36.0) g/dl RDW (11.0-16.0) % Plt Count (160-400) X10*3/uL MPV (9.4-12.4) fL Immature Gran % (Auto) (0.0-0.4) % Neut % (Auto) (45-73) % Lymph % (Auto) (20-40) % [place] % (Auto) (2-11) % Eos % (Auto) (0-4) % Baso % (Auto) (0-2) % Lymph # (Auto) (1.2-4.9) X10*3/uL [place] # (Auto) (0.1-1.2) X10*3/uL Eos # (Auto) (0.0-0.4) X10*3/uL Baso # (Auto) (0.0-0.2) X10*3/uL Abs Immat Gran (auto) (0.00-0.03) X10*3/uL Absolute Neuts (auto) (2.0-8.3) x10*3/uL Absolute Nucleated RBC (0.0-0.012) X10*3/uL Nucleated RBC % (auto) (0.0-0.2) /100WBC Sodium (135-145) mmol/L Potassium (3.3-5.1) mmol/L Chloride (96-108) mmol/L Carbon Dioxide (22-29) mmol/L Anion Gap (12-20) BUN (9-16) mg/dL Creatinine (0.5-1.4) mg/dL Estim Creat Clear Calc Estimated GFR Random Glucose (60-115) mg/dL Calcium (8.4-10.2) mg/dL Total Bilirubin (0.0-1.0) mg/dL AST (5-37) U/L ALT (0-40) U/L Alkaline Phosphatase (39-117) U/L Total Protein (6.5-8.0) g/dL Albumin (3.5-5.0) g/dL Urine Color Dark Yellow Urine Appearance Cloudy Urine pH 5.5 (5.0-9.0) Ur Specific [place] >= 1.030 H (1.005-1.025) Urine Protein 30 (1+) H (Neg-Trace) mg/dL Urine Glucose (UA) Negative (Negative) mg/dL Urine Ketones Trace (Negative) mg/dL Urine Blood Negative (Negative) Urine Nitrite Negative (Negative) Ur Leukocyte Esterase Negative (Negative) Urine RBC 0-2 (0-2) /HPF Urine WBC 0-5 (0-5) /HPF Ur Squamous Epith Cells 0-2 (0-2) /HPF Urine Bacteria None Seen (None Seen) Hyaline Casts 0-2 (0-2) /LPF Urine Opiates Screen POSITIVE H (Not Detect) Urine Fentanyl Screen POSITIVE H (Not Detect) Ur Barbiturates Screen Not Detected (Not Detect) Ur Phencyclidine Scrn Not Detected (Not Detect) Ur Amphetamines Screen Not Detected (Not Detect) U Benzodiazepines Scrn Not Detected (Not Detect) Urine Cocaine Screen POSITIVE H (Not Detect) U Marijuana (THC) Screen POSITIVE H (Not Detect) External Record Review External record reviewed: Inpatient record, Outpatient record and Prior outpatient labs Chronic Conditions Patient?s care impacted by: Other (Polysubstance abuse) Social Determinants Patient?s care significantly limited by Social Determinants of Health including: Other Social Determinant of Health Discharge Plan Discharge Clinical Impression: Suicidal ideation, Bipolar disorder, Depression, Drug-induced psychotic disorder, Polysubstance abuse Patient Disposition: Still a Patient Instructions: Bipolar Disorder (ED), Mood Disorders (ED), Polysubstance Abuse (ED) Additional Instructions: Follow-up with outpatient psychiatry. Please consider detox. Thank you for choosing this emergency department for evaluation. Please follow-up with primary care physician as needed. Return to the emergency department for any new, concerning, or worsening symptoms. Prescriptions: No Action lamotrigine 200 mg tablet 1 tab PO DAILY trazodone 50 mg tablet 2 tab PO BEDTIME mirtazapine 15 mg tablet 1 tab PO BEDTIME lamotrigine [Lamictal] 200 mg tablet 200 mg PO DAILY Qty: 30 0RF mirtazapine [Remeron] 15 mg tablet 15 mg PO BEDTIME Qty: 30 0RF trazodone 100 mg tablet 100 mg PO BEDTIME Qty: 30 0RF Interventions: [place]-Suicide Risk Severity Scale Last Done: 05/24/22 00:49
[2022-05-23] MEDS: Magnesium Hydrox/Alum Hydrox 30 ML ORAL.SUSP PO (21:54)
[2022-05-23] MEDS: Diphth,Pertus(ACell),Tet Adult 0.5 ML SYRINGE IM (21:54)
[2022-05-23] MEDS: Lidocaine HCl Viscous 2 % 15 ML SOLUTION MUCOUS MEM (21:54)
[2022-05-23] MEDS: Ondansetron ODT 4 MG TAB.RAPDIS TRANSLINGU (21:55)
[2022-05-23] MEDS: PHENobarb/Hyoscy/Atropine/Scop 10 ML ELIXIR PO (21:56)
--- NOTE | 2022-05-23 21:59 | MHC.EDTECH ---
PATIENT WAS ER TECH INTO BEHAVIORAL ( GREEN TOP AND BLUE PANTS) PATIENT BELONINGS IN LOCKED UP IN DECON .
[2022-05-23 22:13] LABS: Basophils Absolute Auto 0.1 X10*3/uL (0.0-0.2); Basophils Percent Auto 0.4 % (0-2); Eosinophils Absolute Auto 0.2 X10*3/uL (0.0-0.4); Eosinophils Percent Auto 0.8 % (0-4); Hematocrit 39.2 % (42.0-52.0); Hemoglobin 13.4 g/dl (14.0-18.0); Imm Gran Abs Auto 0.07 X10*3/uL (0.00-0.03); Imm Gran Pct Auto 0.4 % (0.0-0.4); Lymphocytes Absolute Auto 4.7 X10*3/uL (1.2-4.9); Lymphocytes Percent Auto 25.2 % (20-40); MANUAL DIFF FLAG NO; Mean Corpuscular HGB Conc 34.2 g/dl (31.0-36.0); Mean Corpuscular Hemoglobin 30.1 pg (27.0-33.0); Mean Corpuscular Volume 88.1 fL (80.0-98.0); Mean Platelet Volume 8.9 fL (9.4-12.4); Monocytes Absolute Auto 1.4 X10*3/uL (0.1-1.2); Monocytes Percent Auto 7.6 % (2-11); Neutrophils Absolute Auto 12.1 x10*3/uL (2.0-8.3); Neutrophils Percent Auto 65.6 % (45-73); Platelet Count 306 X10*3/uL (160-400); Red Blood Count 4.45 X10*6/uL (4.60-5.80); Red Cell Distribution Width 13.8 % (11.0-16.0); White Blood Count 18.5 X10*3/uL (4.8-10.8)
[2022-05-23 22:27] LABS: Alanine Aminotransferase 16 U/L (0-40); Albumin Level 4.6 g/dL (3.5-5.0); Alkaline Phosphatase 72 U/L (39-117); Anion Gap 17 (12-20); Aspartate Amino Transferase 26 U/L (5-37); Bilirubin Total 2.5 mg/dL (0.0-1.0); Blood Urea Nitrogen 19 mg/dL (9-16); Calcium 9.3 mg/dL (8.4-10.2); Carbon Dioxide 26 mmol/L (22-29); Chloride 99 mmol/L (96-108); Creatinine Clr Calc Pharmacy 111.2; Estimated Glomerular Filt Rate > 60; Glucose Random 113 mg/dL (60-115); Potassium 3.8 mmol/L (3.3-5.1); Sodium 138 mmol/L (135-145)
[2022-05-24 00:07] VITALS: BP 127/69; PULSE 66; RESP 16; TEMP 36.9; O2SAT 97
--- NOTE | 2022-05-24 00:52 | PC.NURSE ---
pt a&o, no sob or chest pain. pt reports being depressed and struggling with EToh and substance. Reports SI. 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
[2022-05-24 01:03] LABS: Appearance Urine Cloudy; Color Urine Dark Yellow; Glucose Urine UA Negative (Negative); Leukocyte Esterase Urine Negative (Negative); Nitrite Urine Negative (Negative); PH 5.5 (5.0-9.0); Specific Gravity - Urine >= 1.030 (1.005-1.025); UMIC TRIGGER UACC YES; Urine Blood Negative (Negative); Urine Ketones Trace mg/dL (Negative); Urine Protein 30 (1+) mg/dL (Neg-Trace)
[2022-05-24 01:06] LABS: Bacteria Urine None Seen (None Seen); Hyaline Casts Urine 0-2 /LPF (0-2); RBC Urine 0-2 /HPF (0-2); Squamous Epithelial Cell Urine 0-2 /HPF (0-2); WBC Urine 0-5 /HPF (0-5)
[2022-05-24 01:13] LABS: Amphetamine Screen Urine Not Detected (Not Detect); Barbiturates, Urine Not Detected (Not Detect); Benzodiazepines Screen Urine Not Detected (Not Detect); Cannabinoid Screen Urine POSITIVE (Not Detect); Cocaine Screen Urine POSITIVE (Not Detect); Fentanyl, urine POSITIVE (Not Detect); Opiate Screen Urine POSITIVE (Not Detect); Phencyclidine Screen Urine Not Detected (Not Detect)
[2022-05-24 02:06] VITALS: BP 117/60; PULSE 67; RESP 18; O2SAT 98
--- NOTE | 2022-05-24 06:47 | PC.NURSE ---
pt sleeping most of the evening, no sign of distress. Will continue to monitor.
--- NOTE | 2022-05-24 06:52 | MHC.EDTECH ---
Pt vital signs documented on downtime form placed in pt chart
--- NOTE | 2022-05-24 08:45 | PC.NURSE ---
Respirations even and unlabored, resting quietly in stretcher. Patient observer at bedside.
[2022-05-24 09:18] VITALS: TEMP 36.8
--- NOTE | 2022-05-24 09:37 | MHC.CARE ---
Patient is requesting detox/ recovery supports. Referral made.
[2022-05-24 09:55] LABS: MANUAL DIFF FLAG NO
[2022-05-24 10:12] LABS: Basophils Absolute Auto 0.1 X10*3/uL (0.0-0.2); Basophils Percent Auto 0.5 % (0-2); Eosinophils Absolute Auto 0.2 X10*3/uL (0.0-0.4); Eosinophils Percent Auto 1.4 % (0-4); Hemoglobin 13.7 g/dl (14.0-18.0); Imm Gran Abs Auto 0.02 X10*3/uL (0.00-0.03); Imm Gran Pct Auto 0.2 % (0.0-0.4); Lymphocytes Absolute Auto 3.2 X10*3/uL (1.2-4.9); Lymphocytes Percent Auto 24.3 % (20-40); Mean Corpuscular HGB Conc 33.4 g/dl (31.0-36.0); Mean Corpuscular Hemoglobin 29.7 pg (27.0-33.0); Mean Corpuscular Volume 88.9 fL (80.0-98.0); Mean Platelet Volume 9.4 fL (9.4-12.4); Monocytes Percent Auto 7.6 % (2-11); Neutrophils Absolute Auto 8.6 x10*3/uL (2.0-8.3); Platelet Count 271 X10*3/uL (160-400); Red Blood Count 4.61 X10*6/uL (4.60-5.80); Red Cell Distribution Width 14.2 % (11.0-16.0)
[2022-05-24 10:12] LABS: COVID-19 Test Negative (Negative); IDNOW Serial# BCCEAD1C; Lactic Acid 1.6 mmol/L (0.5-2.0)
[2022-05-24 10:31] VITALS: BP 98/51; PULSE 58; RESP 18; TEMP 36.3; O2SAT 97
--- NOTE | 2022-05-24 10:49 | PC.NURSE ---
Pt denies any si/hi at this time. Stating he feels as if we are not helping him and he is frustrated with the process. Detox number provided, pt making phone calls.
--- NOTE | 2022-05-24 10:54 | MHC.RECOVRN ---
[facility], pt attempting to get through to complete phone intake.
--- NOTE | 2022-05-24 11:06 | PC.NURSE ---
pt coordinated [facility] intake, spoke with Tita Davis who asked that pt arrive by 1415 at the latest. Recovery team contacted to coordinate transport.
--- NOTE | 2022-05-24 13:25 | PC.NURSE ---
[facility] arranged by Rylee Mckee to accompany pt to tra for mold insert changer.
--- NOTE | 2022-05-24 15:06 | MHC.RECOVRN ---
Pt accompanied to decon, changed, and transported to via [employer].
== END 2022-05-24 13:27 ==
PROVIDERS: Nurse Practitioner Family; Physician Assistant; Emergency Provider Internal Medicine; PCP Internal Medicine
DX: R45.851 Suicidal ideations (principal); F31.9 Bipolar disorder, unspecified; F19.10 Other psychoactive substance abuse, uncomplicated; F06.8 Other specified mental disorders due to known physiological condition; F41.9 Anxiety disorder, unspecified; Z20.822 Contact with and (suspected) exposure to COVID-19; L90.5 Scar conditions and fibrosis of skin; Z79.899 Other long term (current) drug therapy
CPT/HCPCS: 36415; 80053; 80307; 81001; 83605; 85025; 87635; 90471; 90715; 93005; 99285; S9485

== ENCOUNTER 2022-10-29 18:57 | Emergency (ER) | payer MEDICAID, SELFPAY ==
[2022-10-29 19:11] VITALS: BP 125/80; BP 155/107; PULSE 108; PULSE 110; RESP 18; TEMP 36.9; O2SAT 95; O2SAT 98; BMI 26.6
--- NOTE | 2022-10-29 19:14 | ED.OVERDOSE ---
HPI - Overdose General Stated Complaint: heroine OD, 20mg narcan given Time Seen by Provider: 10/29/22 18:58 Source: patient and EMS Mode of arrival: EMS History of Present Illness HPI Narrative: 37-year-old male who states that he uses a bundle a day is brought in by EMS who reports that patient received 20 mg of Narcan prior to their arrival, patient denies any intention to overdose and kill himself, denies any depression or suicidal ideation and states that he only used half a bag. Patient does not want detox and wants to leave immediately. Related Data Home Medications Medication Instructions Recorded Confirmed lamotrigine 200 mg tablet 1 tab PO DAILY 04/23/22 04/23/22 mirtazapine 15 mg tablet 1 tab PO BEDTIME 04/23/22 04/23/22 trazodone 50 mg tablet 2 tab PO BEDTIME 04/23/22 04/23/22 Previous Rx's Medication Instructions Recorded lamotrigine 200 mg tablet 200 mg PO DAILY #30 tabs 04/24/22 (Lamictal) mirtazapine 15 mg tablet (Remeron) 15 mg PO BEDTIME #30 tabs 04/24/22 trazodone 100 mg tablet 100 mg PO BEDTIME #30 tabs 04/24/22 Allergies Allergy/AdvReac Type Severity Reaction Status Date / Time No Known Allergies Allergy Verified 04/23/22 19:49 Review of Systems Review of Systems: Pertinent positives and negatives as stated in HPI PMFSH Past Medical History Source: nursing notes reviewed Medical History No known health problems Social History Social History Alcohol intake: current Substance Use Type: Heroin Physical Exam Vital Signs: Vital Signs: VITAL SIGNS: Reviewed. GENERAL: Well developed, well nourished, in no acute distress. HEAD: Normocephalic/atraumatic EYES: PERRLA, EOMI EARS: Ext canals without abnormality NOSE: Nares patent bilateral OROPHARYNX: no oral lesions noted, posterior pharynx clear NECK: Supple, no adenopathy LUNGS: Normal breath sounds. No adventitious sounds or accessory muscle use. SpO2<95> CARDIOVASCULAR: Regular rate and rhythm without noted murmurs ABDOMEN: Soft, non-tender, non-distended with bowel sounds. MUSCULOSKELETAL: No tenderness, deformities, or effusions noted on gross inspection. EXTREMITIES: No cyanosis, clubbing or edema. SKIN: Inspection of the skin reveals no rashes NEUROLOGIC: Alert and oriented x 4. Strength and sensation to light touch were grossly intact x 4. Medical Decision Making Medical Decision Making MDM Narrative: 37-year-old male with history and clinical presentation consistent with accidental overdose, has received Narcan, pupils are not pinpoint, patient is alert and oriented in is declining detox/suicidal ideation/depression and understands that he will need to sign out against medical advice. Discharge Plan Discharge Clinical Impression: Accidental overdose, Heroin use Patient Disposition: Left Against Medical Advice Instructions: Adult Overdose (ED), Opioid Use Disorder (ED) Additional Instructions: Return to the ER for any worsening symptoms. Prescriptions: No Action lamotrigine 200 mg tablet 1 tab PO DAILY trazodone 50 mg tablet 2 tab PO BEDTIME mirtazapine 15 mg tablet 1 tab PO BEDTIME lamotrigine [Lamictal] 200 mg tablet 200 mg PO DAILY Qty: 30 0RF mirtazapine [Remeron] 15 mg tablet 15 mg PO BEDTIME Qty: 30 0RF trazodone 100 mg tablet 100 mg PO BEDTIME Qty: 30 0RF Stand Alone Forms: Against Medical Advice
--- NOTE | 2022-10-29 19:23 | PC.NURSE ---
This RN assessed patient, patient refused all treatment. Patient left AMA and ambulated with steady gait, AOx4 upon discharge
== END 2022-10-29 19:45 | disposition left against medical advice (07) ==
LOC: HO.ED 19:36
PROVIDERS: Emergency Provider Student in an Organized Health Care Education/Training Program
DX: T40.1X1A Poisoning by heroin, accidental (unintentional), initial encounter (principal); Y92.9 Unspecified place or not applicable; Z71.51 Drug abuse counseling and surveillance of drug abuser
CPT/HCPCS: 99282

== ENCOUNTER 2023-10-15 11:52 | Emergency (ER) | payer MEDICAID, SELFPAY ==
[2023-10-15 12:11] VITALS: BP 128/85; BP 162/94; PULSE 112; PULSE 82; RESP 16; TEMP 36.9; O2SAT 96; O2SAT 98; BMI 25.8
--- NOTE | 2023-10-15 12:11 | PC.NURSE ---
[facility] from [facility] in [place] d/t accidental overdose on heroin via IV (unknown amount). 12mg narcan administered intranasally by bystander prior to EMS arrival. alert/calm/cooperative upon EMS arrival. pt a&ox4 upon EMS arrival. vss and up to date. pt has no complaints. denies pain. just states that he is cold and wants a blanket. pt provided w/ blanket. offered pt gingerale/snack but he refused at this time. no sob/wob noted. respirations even/unlabored. plan of care ongoing.
--- NOTE | 2023-10-15 12:14 | PC.NURSE ---
pt changed over by security - belongings obtained/placed in decon.
--- NOTE | 2023-10-15 12:36 | ED_ITS ---
HPI - Overdose General Chief Complaint: Overdose Stated Complaint: OD,NARCAN GIVEN BY PD W/GOOD EFFECT PER EMS Time Seen by Provider: 10/15/23 12:26 Source: patient, EMS and old records reviewed Mode of arrival: EMS Limitations: no limitations History of Present Illness ED Provider: Smita Perea PA-C HPI Narrative: 38-year-old male with history of polysubstance use disorder, homelessness, bipolar disorder, depression, history of multiple overdoses in the past who presents to the ER for evaluation after an accidental overdose. Patient admits to [place] a couple [place]. He is not sure who administered Narcan. Per EMS 12 mg of Narcan were administered by a bystander. Patient is awake and alert on arrival, complaining of feeling unwell. He is nauseous and has a headache. He denies any chest pain or shortness of breath. No abdominal pain or diarrhea. Denies any suicidal ideation. He states he is not sure if he wants to see anyone from recovery/Addiction Medicine MD complaint: accidental overdose Onset (ago): unknown Related Data Home Medications ?Medication ?Instructions ?Recorded ?Confirmed lamotrigine 200 mg tablet 1 tab PO DAILY 04/23/22 04/23/22 mirtazapine 15 mg tablet 1 tab PO BEDTIME 04/23/22 04/23/22 trazodone 50 mg tablet 2 tab PO BEDTIME 04/23/22 04/23/22 Previous Rx's ?Medication ?Instructions ?Recorded lamotrigine 200 mg tablet 200 mg PO DAILY #30 tabs 04/24/22 (Lamictal) mirtazapine 15 mg tablet (Remeron) 15 mg PO BEDTIME #30 tabs 04/24/22 trazodone 100 mg tablet 100 mg PO BEDTIME #30 tabs 04/24/22 Allergies Allergy/AdvReac Type Severity Reaction Status Date / Time No Known Allergies Allergy Verified 10/15/23 12:11 Review of Systems Review of Systems: Yes all other systems are reviewed and are negative PMFSH Past Medical History Medical History No known health problems Social History Social History Alcohol intake: current Substance Use Type: Heroin Do you have a plan to hurt others: No Plan Physical Exam Vital Signs: Vital Signs: Last Vital Signs Temp 97.5 F 10/15/23 15:51 Pulse 70 10/15/23 15:51 Resp 16 10/15/23 15:51 BP 97/50 L 10/15/23 15:51 Pulse Ox 93 10/15/23 15:51 O2 Del Method Room Air 10/15/23 15:51 BMI result Body Mass Index 25.8 Appearance: Lethargic, arouses to voice Oriented X3. Unkempt and disheveled Head: normocephalic, atraumatic. Eyes: Pupils equal, round and reactive to light. Pupils are not pinpoint ENT: Pharynx normal. No tonsillar swelling or exudate. Neck: Normal inspection. Neck supple. CVS: Normal heart rate and rhythm. Pulses normal. Respiratory: No respiratory distress. Breath sounds normal. No respiratory depression. Speaking in complete sentences Abdomen: Soft and nontender. +BS x4 Skin: Skin warm and dry. Normal skin color. Normal skin turgor. No rashes. Extremities: No lower extremity edema. No joint swelling. Neuro/psych: Oriented X 3. Unwilling to cooperate with full neurologic examination, spontaneously moving all extremities and follows simple commands intermittently Medications Administered Discontinued Medications Generic Name Dose Route Start Last Admin Trade Name Freq PRN Reason Stop Dose Admin Ondansetron HCl 4 mg 10/15/23 12:29 10/15/23 13:09 Ondansetron Odt 4 Mg Tab.Rapdis TRANSLINGU 10/15/23 12:30 Not Given ONCE ONE Medical Decision Making Medical Decision Making MDM Narrative: 38-year-old male with a history of polysubstance abuse, IVDA, bipolar, depression who presents to the ER for evaluation after he accidentally overdosed on intravenous heroin while in the park today. Required 12 mg of Narcan. Arrives to the ER awake and alert but then became slightly lethargic, no respiratory depression noted. Not hypoxic. Patient was observed in the ER and detox was offered Patient was seen by addiction Medicine and he declined services. After 3 hours of observation in the ER patient was much more awake and alert. He wants to be discharged home. Declining need for detox. Given Narcan to go. Stable for discharge home Differential Diagnosis Differential Diagnoses: The differential diagnosis associated with the presentation includes Polysubstance overdose, heroin overdose, intentional overdose or unintentional overdose, Admission/Observation Consideration of admission/observation: Escalation of care including admission/observation considered Significant Narcan dose was required, will need observation Independent Historian Clinical information obtained from an independent historian. History obtained from or confirmed by: EMS External Record Review External record reviewed: Outpatient record, Prior outpatient labs and Prior outpatient radiology Prescription Management I considered prescription management with: Other (Narcan) Chronic Conditions Patient?s care impacted by: Other (Polysubstance use disorder) Social Determinants Patient?s care significantly limited by Social Determinants of Health including: Inadequate housing, Problems related to primary support group and Other Social Determinant of Health Critical Care Time Critical Care Time Critical Care Time: No Discharge Plan Discharge Clinical Impression: Drug overdose Qualifiers: Encounter type: initial encounter Injury intent: accidental or unintentional Qualified Code(s): T50.901A - Poisoning by unspecified drugs, medicaments and biological substances, accidental (unintentional), initial encounter Patient Disposition: Home, Self-Care Instructions: Adult Overdose (ED) Additional Instructions: Do not do drugs, they can kill you. You almost today. Recommend detox. If you develop new or worsening symptoms call 911 or come back to the ER for further evaluation. Prescriptions: No Action lamotrigine 200 mg tablet 1 tab PO DAILY trazodone 50 mg tablet 2 tab PO BEDTIME mirtazapine 15 mg tablet 1 tab PO BEDTIME lamotrigine [Lamictal] 200 mg tablet 200 mg PO DAILY Qty: 30 0RF mirtazapine [Remeron] 15 mg tablet 15 mg PO BEDTIME Qty: 30 0RF trazodone 100 mg tablet 100 mg PO BEDTIME Qty: 30 0RF Referrals: [facility] [Provider Group] Chanda Bailey CNP [Nurse Practitioner] - Print Language: Latvian
--- NOTE | 2023-10-15 13:08 | PC.NURSE ---
pt verbalizing he is not feeling nauseous at this time and does not want medication ordered by provider. pt currently resting in recliner in no apparent distress. addiction medicine consult placed. no sob/wob noted. respirations even/unlabored. plan of care ongoing.
--- NOTE | 2023-10-15 15:00 | PC.NURSE ---
addiction medicine consult completed at this time.
[2023-10-15 15:51] VITALS: BP 97/50; PULSE 70; RESP 16; TEMP 36.4; O2SAT 93
[2023-10-15 16:06] VITALS: BP 97/50; PULSE 70; RESP 16; TEMP 36.4; O2SAT 93
[2023-10-15] MEDS: Naloxone HCl Nasal TAKE HOME 4 MG SPRAY 8 MG NOSTRILALT (16:08)
--- NOTE | 2023-10-15 16:08 | PC.NURSE ---
take home narcan provided to pt. belongings secured from tra prior to d/c.
--- NOTE | 2023-10-16 08:31 | HO.SUDE ---
Pt declined SUDE.
== END 2023-10-15 16:08 | disposition home or self-care (01) ==
PROVIDERS: Emergency Provider Emergency Medicine
DX: T40.1X1A Poisoning by heroin, accidental (unintentional), initial encounter (principal); R53.83 Other fatigue; F19.10 Other psychoactive substance abuse, uncomplicated; Y92.830 Public park as the place of occurrence of the external cause
CPT/HCPCS: 99283

== ENCOUNTER 2025-01-11 18:17 | Inpatient (IN) | payer OTHER, SELFPAY ==
[2025-01-11 18:28] VITALS: BP 157/94; PULSE 91; RESP 16; TEMP 36.6; O2SAT 98; BMI 27.8
--- NOTE | 2025-01-11 18:29 | ECG_ITS ---
Test Reason : MED CLEARANCE Blood Pressure : */* mmHG Vent. Rate : 82 BPM Atrial Rate : 82 BPM P-R Int : 130 ms QRS Dur : 84 ms QT Int : 378 ms P-R-T Axes : 57 61 45 degrees QTcB Int : 441 ms Normal sinus rhythm Normal ECG When compared with ECG of 23-May-2022 22:06, No significant change was found Referred By: Chary Silverio Electronically Signed By: ALBARO BOLAND MD
--- NOTE | 2025-01-11 18:29 | ED.GENADULT ---
HPI - General Adult General Chief complaint: Psychiatric Symptoms Stated complaint: CRISIS Time Seen by Provider: 01/11/25 18:43 Source: patient Mode of arrival: ambulatory Limitations: no limitations History of Present Illness ED Provider: Uche Mcconnell [facility] narrative: 39 yold male with pm of depression presents to the ED for SI and homicidal ideation. patient states he has plan to overdose on meds. patient patient states he stopped taking his meds for over a year and has not had family support for over a year. Patient has admits to stop talking to his therapist. Related Data Home Medications ?Medication ?Instructions ?Recorded ?Confirmed No Known Home Meds 01/11/25 01/11/25 Allergies Allergy/AdvReac Type Severity Reaction Status Date / Time No Known Allergies Allergy Verified 01/11/25 18:31 Review of Systems Review of Systems: Suicidal homicidal Yes all other systems are reviewed and are negative PMFSH Past Medical History Medical History No known health problems Social History Social History Household Members: Other Household Members Other:: Staying with parents Housing: Apartment Do you presently have visiting nurse or other home services: No Alcohol intake: current Alcohol intake frequency: 3 or more drinks per day Alcohol type: beer and hard liquor Patient Tobacco Use Status: Current everyday Tobacco user Tobacco use type: Cigarette Cigarettes Per Day: 30 Smoked in Last 30 Days: Yes Patient Interested in Nicotine Replacement: Yes Patient Given Instructions on How to Stop Smoking: No Second Hand Smoke Exposure: Yes Use of substances other than those prescribed or required for medical reasons: Yes Substance Use Type: Crack/Cocaine and Heroin Substance Use Frequency: Chronic Longstanding Last Used Substance: Days (ago) Currently Displaying Signs/Symptoms of Drug Intoxication Withdrawal: No Any prior treatment program specific to substance use: No Have you been hit, kicked, punched, or otherwise hurt by someone within the past year? If so, by whom?: No Do you feel safe in your current relationship?: No Current Relationship Is there a partner from a previous relationship who is making you feel unsafe now?: No Are you made to feel afraid or neglected: No Spiritual Healthcare Practices: None Synagogue Healthcare Practices: None Cultural Healthcare Practices: None Advance Directives: No Advance Directives Information Provided: No Do you have thoughts of harming others: None Do you have a plan to hurt others: No Plan Recently lost weight without trying: Yes How much weight loss: 2-13 pounds Eating poorly because of decreased appetite: Yes Nutrition screen score: 4 Nutrition Risks: No Nutritional Risk Poor oral hygiene: Yes (poor dentition) Physical Exam ED Vital Signs: Vital Signs - 24 hr 01/11/25 18:28 01/11/25 22:00 Temperature 97.8 F 97.3 F Pulse Rate 91 75 Respiratory Rate 16 16 Blood Pressure 157/94 H 138/94 H Pulse Oximetry 98 95 Oxygen Delivery Method Room Air Room Air BMI result Body Mass Index 27.8 Const General: cooperative, healthy appearing, comfortable, no acute distress, well developed, alert, awake and Physically active Orientation/consciousness: patient oriented x3 HENMT Head: Yes normal to inspection, Yes No palpable skull fracture present, Yes normocephalic and Yes atraumatic Eyes General: appearance normal, both eyes and all related structures Neck Neck: Yes normal visual inspection, Yes full ROM, Yes no lymphadenopathy, Yes no meningeal signs, Yes trachea midline, Yes supple, No anterior neck swelling and No tender Chest Chest palpation & inspection: normal inspection of the chest and normal palpation of entire chest wall Resp Effort & Inspection: normal respiratory effort and able to speak in complete sentences Auscultation: clear to auscultation bilaterally Cardio Jugular venous distension: no JVD Heart sounds: S1 normal heart sound present and S2 normal heart sound present GI Inspection: Yes normal to inspection Palpation (GI): Soft to palpation, not firm, nontender, no guarding and not rigid General: Yes no CVA tenderness Back/Spine/Pelvis Back: no CVA tenderness and No back tenderness Skin General skin exam: no rashes or lesions noted, elasticity normal and turgor normal Neuro General: patient oriented x3, gait normal, tone normal, moves all extremities, Normal light touch and pain sensation, no meningeal signs, no focal motor deficits, CN's II-XI intact bilaterally and normal sensation to monofilament Extrem General: Yes normal to inspection, Yes full ROM and Yes capillary refill normal Psych Appearance: grossly normal, well kempt and not disheveled Course Course Course Narrative: Rapid medical examination performed in triage by Chary Silverio PA-C: Patient is a 39 year old assigned male at presenting to the emergency department with thoughts of hurting himself and others. Detailed physical exam and review of systems are deferred to the public transportation inspector. social worker delinquency prevention aware. Medications Administered Generic Name Dose Route Start Last Admin Trade Name Freq PRN Reason Stop Dose Admin Clonidine HCl 0.1 mg 01/12/25 17:37 01/13/25 09:02 Clonidine Hcl 0.1 Mg Tablet PO 0.1 mg Q4H PRN Administration Opiate W/D symptoms Protocol Lorazepam 1 mg 01/12/25 17:37 01/13/25 09:02 Lorazepam 1 Mg Tablet PO 1 mg Q2H PRN Administration CIWA 8-11 Nicotine Polacrilex 4 mg 01/12/25 13:38 01/13/25 09:04 Nicotine Polacrilex 2 Mg Gum BUCCAL 4 mg Q2H PRN Administration Nicotine Cravings Thiamine HCl 100 mg 01/13/25 09:00 01/13/25 08:44 Thiamine Hcl 100 Mg Tablet PO 100 mg DAILY KATHIA Administration Discontinued Medications Generic Name Dose Route Start Last Admin Trade Name Freq PRN Reason Stop Dose Admin Diphenhydramine HCl 50 mg 01/11/25 19:26 01/11/25 19:44 Diphenhydramine Hcl 25 Mg Capsule PO 01/11/25 19:27 50 mg ONCE ONE Administration Influenza Virus Vaccine 0.5 ml 01/12/25 17:13 01/12/25 17:46 Flu Vacc [id number](6mo Up)/Pf 0.5 Ml Syringe IM 01/12/25 17:14 Not Given .ONCE ONE Lorazepam 2 mg 01/11/25 19:26 01/11/25 19:44 Lorazepam 1 Mg Tablet PO 01/11/25 19:27 2 mg ONCE ONE Administration Medical Decision Making Medical Decision Making MDM Narrative: 39-year-old male presents to the ED for SI homicidal ideation. Patient has been noncompliant with his psych meds and does not go to his therapist. Patient labs are reassuring and at baseline. Patient was evaluated by care team consulted who place patient on section 12 as a dual diagnosis for bed placement. Depression and substance abuse is diagnosis. Differential Diagnosis Differential Diagnoses: The differential diagnosis associated with the presentation includes (SI homicidal) Admission/Observation Consideration of admission/observation: Escalation of care including admission/observation considered Consult Healthcare Provider Management of the patient was discussed with: Flower Cheniller (Care team) Lab Data 01/11/25 19:12 01/11/25 19:12 Labs: Lab Results 01/11/25 01/11/25 Range/Units 19:01 19:12 WBC 12.1 H (4.8-10.8) X10*3/uL RBC 4.74 (4.60-5.80) X10*6/uL Hgb 15.0 (14.0-18.0) g/dl Hct 43.2 (42.0-52.0) % MCV 91.1 (80.0-98.0) fL MCH 31.6 (27.0-33.0) pg MCHC 34.7 (31.0-36.0) g/dl RDW 13.3 (11.0-16.0) % Plt Count 196 D (160-400) X10*3/uL MPV 9.1 L (9.4-12.4) fL Immature Gran % (Auto) 0.2 (0.0-0.4) % Neut % (Auto) 73.7 H (45-73) % Lymph % (Auto) 14.4 L (20-40) % Ransom % (Auto) 10.9 (2-11) % Eos % (Auto) 0.2 (0-4) % Baso % (Auto) 0.6 (0-2) % Lymph # (Auto) 1.8 (1.2-4.9) X10*3/uL Ransom # (Auto) 1.3 H (0.1-1.2) X10*3/uL Eos # (Auto) 0.0 (0.0-0.4) X10*3/uL Baso # (Auto) 0.1 (0.0-0.2) X10*3/uL Abs Immat Gran (auto) 0.03 (0.00-0.03) X10*3/uL Absolute Neuts (auto) 9.0 H (2.0-8.3) x10*3/uL Absolute Nucleated RBC 0.000 (0.0-0.012) X10*3/uL Nucleated RBC % (auto) 0.0 (0.0-0.2) /100WBC Sodium 134 L (135-145) mmol/L Potassium 3.7 (3.3-5.1) mmol/L Chloride 98 (96-108) mmol/L Carbon Dioxide 22 (22-29) mmol/L Anion Gap 18 (12-20) BUN 12 (9-16) mg/dL Creatinine 0.76 (0.5-1.4) mg/dL Estim Creat Clear Calc 144.2 Estimated GFR > 60 Random Glucose 104 (60-115) mg/dL Calcium 9.0 (8.4-10.2) mg/dL Total Bilirubin 1.4 H (0.0-1.0) mg/dL AST 80 H (5-37) U/L ALT 88 H (0-40) U/L Alkaline Phosphatase 86 (39-117) U/L Total Protein 7.3 (6.5-8.0) g/dL Albumin 4.7 (3.5-5.0) g/dL Urine Color Dark Yellow Urine Appearance Clear Urine pH 5.5 (5.0-9.0) Ur Specific [facility] >= 1.030 H (1.005-1.025) Urine Protein 30 (1+) H (Neg-Trace) mg/dL Urine Glucose (UA) Negative (Negative) mg/dL Urine Ketones 40 (Negative) mg/dL Urine Blood Negative (Negative) Urine Nitrite Negative (Negative) Ur Leukocyte Esterase Negative (Negative) Urine RBC 0-2 (0-2) /HPF Urine WBC 0-5 (0-5) /HPF Ur Squamous Epith Cells 0-2 (0-2) /HPF Urine Bacteria None Seen (None Seen) Hyaline Casts 0-2 (0-2) /LPF Salicylates < 5.0 L (15-30) mg/dL Urine Opiates Screen POSITIVE H (Not Detect) Ur Buprenorphine Scrn Positive H (Not Detect) ng/mL Ur Oxycodone Screen Not Detected (Not Detect) ng/mL Urine Methadone Screen Not Detected (Not Detect) ng/mL Urine Fentanyl Screen POSITIVE H (Not Detect) Acetaminophen < 3 (<30) mcg/mL Ur Barbiturates Screen Not Detected (Not Detect) Ur Phencyclidine Scrn Not Detected (Not Detect) Ur Amphetamines Screen Not Detected (Not Detect) U Benzodiazepines Scrn Not Detected (Not Detect) Urine Cocaine Screen POSITIVE H (Not Detect) U Marijuana (THC) Screen POSITIVE H (Not Detect) Ethyl Alcohol < 10 mg/dL Discharge Plan Discharge Clinical Impression: Depression, Polysubstance abuse Patient Disposition: Admitted As Inpatient Interventions: Admission Worksheet (ED) Last Done: 01/12/25 16:42 Discharge Date/Time: 01/12/25 16:43
--- NOTE | 2025-01-11 18:54 | PC.NURSE ---
Hyu presents to the ED today reporting suicidal and homicidal ideation secondary to not taking psychiatric meds. Patient reports he has been med non-compliant for about a year now. Patient is calm and cooperative, help seeking at this time. Pt reports that he is a daily drinker, drinking excessively every single day, reports no history of alcohol withdrawal Pt also reports daily crack/fentanyl usage IV
[2025-01-11 18:58] VITALS: PULSE 91
--- NOTE | 2025-01-11 19:01 | PC.NURSE ---
COWS and JOSE Weber, PA Uche aware
[2025-01-11 19:13] LABS: Appearance Urine Clear; Glucose Urine UA Negative (Negative); PH 5.5 (5.0-9.0); Specific Gravity - Urine >= 1.030 (1.005-1.025); UMIC TRIGGER UA YES
[2025-01-11 19:16] LABS: MANUAL DIFF FLAG NO
[2025-01-11 19:17] LABS: Cannabinoid Screen Urine POSITIVE (Not Detect)
[2025-01-11 19:21] LABS: Hematocrit 43.2 % (42.0-52.0); Hemoglobin 15.0 g/dl (14.0-18.0); Imm Gran Abs Auto 0.03 X10*3/uL (0.00-0.03); Imm Gran Pct Auto 0.2 % (0.0-0.4); Lymphocytes Absolute Auto 1.8 X10*3/uL (1.2-4.9); Mean Corpuscular HGB Conc 34.7 g/dl (31.0-36.0); Mean Corpuscular Hemoglobin 31.6 pg (27.0-33.0); Mean Corpuscular Volume 91.1 fL (80.0-98.0); NRBC Abs Auto 0.000 X10*3/uL (0.0-0.012); NRBC Pct Auto 0.0 /100WBC (0.0-0.2); Platelet Count 196 X10*3/uL (160-400); Red Blood Count 4.74 X10*6/uL (4.60-5.80); White Blood Count 12.1 X10*3/uL (4.8-10.8)
[2025-01-11 19:34] LABS: Acetaminophen LAB < 3 mcg/mL (<30); Salicylate < 5.0 mg/dL (15-30)
[2025-01-11 19:35] LABS: Alanine Aminotransferase 88 U/L (0-40); Albumin Level 4.7 g/dL (3.5-5.0); Alkaline Phosphatase 86 U/L (39-117); Anion Gap 18 (12-20); Aspartate Amino Transferase 80 U/L (5-37); Blood Urea Nitrogen 12 mg/dL (9-16); Calcium 9.0 mg/dL (8.4-10.2); Carbon Dioxide 22 mmol/L (22-29); Chloride 98 mmol/L (96-108); Creatinine Clr Calc Pharmacy 144.2; Estimated Glomerular Filt Rate > 60; Potassium 3.7 mmol/L (3.3-5.1); Sodium 134 mmol/L (135-145); Total Protein 7.3 g/dL (6.5-8.0)
[2025-01-11 22:00] VITALS: BP 138/94; PULSE 75; RESP 16; TEMP 36.3; O2SAT 95
--- NOTE | 2025-01-11 22:41 | PC.NURSE ---
Pt ambulating around room, appearing to reach for items that are not there. Pt engages easily in conversation when spoken to
[2025-01-12 06:44] VITALS: BP 156/90; PULSE 55; RESP 14; TEMP 36.6; O2SAT 95
[2025-01-12 16:13] VITALS: BP 150/93; PULSE 55; RESP 16; TEMP 36.2; O2SAT 97
[2025-01-12 17:47] VITALS: BMI 26.5
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
[2025-01-12 20:31] VITALS: BP 148/80; PULSE 58; RESP 16; TEMP 36.8; O2SAT 96
[2025-01-13 08:00] VITALS: BP 157/82; PULSE 58; RESP 18; TEMP 36.4; O2SAT 98
[2025-01-13 08:08] VITALS: PULSE 58
[2025-01-13 08:30] LABS: Cholesterol 143 mg/dL (<200); HDL Cholesterol 52 mg/dL (>40); Triglycerides 88 mg/dL (<150)
--- NOTE | 2025-01-13 09:21 | P.CONHOSP_ITS ---
History of Present Illness Data of Consult Service Date: 01/13/25 Primary Care Provider: None Physician HPI Reason for consult: Medical H&P 39-year-old male with a past medical history of depression, PTSD, anxiety, history of treated hep C and polysubstance abuse including crack cocaine and heroin, history of multiple drug overdoses complicated by homelessness presented to the emergency department with suicidal and homicidal ideation. Patient has daily alcohol use reports 2 beers a day as well as a nip. Recently patient has been noncompliant with his medication as well as see a therapist and a longer period. Initial workup in the ED revealed mild leukocytosis, no anemia. +Transaminitis, no evidence of renal injury. No electrolyte imbalances, urine without evidence of infection. Tox screen positive for opiates, fentanyl, cocaine and marijuana. On exam he is visibly upset, reporting moderate anxiety which is unrelieved. Does not have any medical concerns. Review of Systems 2 Review of Systems: Denies any shortness of breath, chest pain, headaches, dysuria, abdominal pain or discomfort, nausea, vomiting or diarrhea. Denies fever or chills. Reports severe anxiety. FOR[facility]LY [facility], [facility] Medical History No known health problems Social History Household Members: Other Household Members Other:: Staying with parents Housing: Apartment Do you presently have visiting nurse or other home services: No Alcohol intake: current Alcohol intake frequency: 3 or more drinks per day Alcohol type: beer and hard liquor Patient Tobacco Use Status: Current everyday Tobacco user Tobacco use type: Cigarette Cigarettes Per Day: 30 Smoked in Last 30 Days: Yes Patient Interested in Nicotine Replacement: Yes Patient Given Instructions on How to Stop Smoking: No Second Hand Smoke Exposure: Yes Use of substances other than those prescribed or required for medical reasons: Yes Substance Use Type: Crack/Cocaine and Heroin Substance Use Frequency: Chronic Longstanding Last Used Substance: Days (ago) Currently Displaying Signs/Symptoms of Drug Intoxication Withdrawal: No Any prior treatment program specific to substance use: No Have you been hit, kicked, punched, or otherwise hurt by someone within the past year? If so, by whom?: No Do you feel safe in your current relationship?: No Current Relationship Is there a partner from a previous relationship who is making you feel unsafe now?: No Are you made to feel afraid or neglected: No Spiritual Healthcare Practices: None Mormonism Healthcare Practices: None Cultural Healthcare Practices: None Advance Directives: No Advance Directives Information Provided: No Do you have thoughts of harming others: None Do you have a plan to hurt others: No Plan Recently lost weight without trying: Yes How much weight loss: 2-13 pounds Eating poorly because of decreased appetite: Yes Nutrition screen score: 4 Nutrition Risks: No Nutritional Risk Poor oral hygiene: Yes (poor dentition) service: No Sexual orientation: Straight/Heterosexual Meds Allergies Allergy/AdvReac Type Severity Reaction Status Date / Time No Known Allergies Allergy Verified 01/11/25 18:31 Active Medications: Current Medications Al Hydroxide/Mg Hydroxide (Magnesium Hydrox/Alum Hydrox 30 Ml Oral.Susp) 30 ml PO Q6H PRN PRN Reason: Heartburn/Nausea Baclofen (Baclofen 10 Mg Tablet) 10 mg PO TID PRN PRN Reason: Opiate W/D Clonidine HCl (Clonidine Hcl 0.1 Mg Tablet) 0.1 mg PO Q4H PRN; Protocol PRN Reason: Opiate W/D symptoms Last Admin: 01/13/25 09:02 Dose: 0.1 mg Hydroxyzine HCl (Hydroxyzine Hcl 25 Mg Tablet) 25 mg PO Q6H PRN PRN Reason: mild anxiety Lorazepam (Lorazepam 1 Mg Tablet) 1 mg PO Q2H PRN PRN Reason: CIWA 8-11 Last Admin: 01/13/25 09:02 Dose: 1 mg Lorazepam (Lorazepam 1 Mg Tablet) 2 mg PO Q2H PRN PRN Reason: CIWA 12-15 Magnesium Hydroxide (Milk Of Magnesia 30 Ml Oral.Susp) 30 ml PO DAILY PRN PRN Reason: Constipation Nicotine Polacrilex (Nicotine Polacrilex 2 Mg Gum) 4 mg BUCCAL Q2H PRN PRN Reason: Nicotine Cravings Last Admin: 01/13/25 09:04 Dose: 4 mg Olanzapine (Olanzapine 5 Mg Tablet) 5 mg PO Q4H PRN PRN Reason: agitation/severe anxiety Ondansetron HCl (Ondansetron Odt 4 Mg Tab.Rapdis) 4 mg TRANSLINGU Q6H PRN PRN Reason: Nausea and Vomiting Thiamine HCl (Thiamine Hcl 100 Mg Tablet) 100 mg PO DAILY KATHIA Last Admin: 01/13/25 08:44 Dose: 100 mg Trazodone HCl (Trazodone Hcl 50 Mg Tablet) 50 mg PO BEDTIME MRX1 PRN PRN Reason: Insomnia Home Medications ?Medication ?Instructions ?Recorded ?Confirmed ?Last Taken ?Type No Known Home Meds 01/11/25 01/11/25 Un known History Physical Exam 2 Vital Signs and Narrative: Vital Signs: Last Vital Signs Temp 97.5 F 01/13/25 08:00 Pulse 58 01/13/25 08:00 Resp 18 01/13/25 08:00 BP 157/82 H 01/13/25 08:00 Pulse Ox 98 01/13/25 08:00 O2 Del Method Room Air 01/13/25 08:00 BMI result Body Mass Index 26.5 Alert and oriented, moderate anxiety Neuro: CN II-X11 intact, no deficits, visual acuity intact EYES: PERRLA, EOM intact ENT: Hearing intact, MMM Cardiac: S1 S2 RRR, No ectopy Pulmonary: lungs clear to auscultation, No increased WOB. Abdominal: BS active in all 4 quadrants, no guarding or tenderness MSK: Strength 5/5 upper and lower extremities : Deferred Extremities: No edema in lower extremities Psych: Moderate anxiety, alert Skin: Warm and dry, Intact Results Labs 01/11/25 19:12 01/11/25 19:12 Labs: Laboratory Results - last 24 hr 01/13/25 07:54 Estimat Average Glucose 103 Hemoglobin A1c % 5.2 Triglycerides 88 Cholesterol 143 LDL Cholesterol, Calc 74 HDL Cholesterol 52 Assessment and Plan (1) Depression: Status: Acute Plan 39-year-old male with past medical history listed below who presented to the emergency department with suicidal and homicidal ideation. Depression/PTSD/Anxiety/Polysubstance abuse/history of multiple overdoses History of treated hep C/Transaminitis Stable, follow labs. Thank you for allowing me to participate in the care of this patient. Will follow with you, please notify medical provider with any changes in condition or concerns.
[2025-01-13 16:00] VITALS: PULSE 76
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
[2025-01-13 20:00] VITALS: BP 143/95; PULSE 65; RESP 14; TEMP 37; O2SAT 97
[2025-01-13 20:22] VITALS: BP 143/95
[2025-01-14] VITALS (8 sets, daily range): BP systolic 123–162; BP diastolic 89–107; PULSE 63–81; RESP 16–18; TEMP 36.2–36.6; O2SAT 98–99; BMI 26.5
--- NOTE | 2025-01-14 12:40 | HO.PSYCHPN ---
Subjective Subjective Date of Service: 01/14/25 Reason For Visit: SI Subjective Notes: Conditional Voluntary Interim History: Chart reviewed. Case discussed with team Met w/ pt along with SW in his room. Pt requested to start methadone just to get him through the opioid w/d but he doesn't want to take it long-term. T/W requested an addiction medicine consult, who already met with him. Recommended starting with 20 mg methadone and the vocational rehab consultant will reassess him in 1-2 hrs. Pt had poor sleep last night due to physical discomfort from w/d. Endorses upset stomach, body aches, feeling like crawling out of his skin, irritability, KNOWLES. He denies SI today. Denied any further concerns at this time Pt received total of 3 mg of lorazepam per CIWA today. He has been hypertensive since admission on 01/11 (also in setting of opioid w/d). Attending Groups: No Mental Status Exam Mental Status Exam Narrative: Appearance: lying in bed. appeared to be asleep but easily rousable to his name being called. good eye contact. appears tired and physically uncomfortable Attitude: cooperative Speech: Fluent and wnl in regard to volume, tone, prosody Motor activity: some restlessness, no tremors. Mood: 'not good' Affect: appropriate, constricted Thought process: goal directed and without evidence of formal thought disorder Thought content: Denies SI. Does not endorse violent ideation Perception: does not appear to respond to internal stimuli Cognition grossly intact Insight: fair Judgment: fair Diagnostics Vital Signs (24Hr): Vital Signs - 24 hr 01/13/25 20:00 01/13/25 20:22 01/14/25 00:08 Temperature 98.6 F 97.5 F Pulse Rate 65 72 Respiratory Rate 14 16 Blood Pressure 143/95 H 143/95 H 123/89 Pulse Oximetry 97 98 Oxygen Delivery Method Room Air Room Air 01/14/25 09:15 01/14/25 09:20 Temperature 97.2 F Pulse Rate 65 Respiratory Rate 16 Blood Pressure 147/102 H 147/102 H Pulse Oximetry 98 Oxygen Delivery Method Room Air BMI result Body Mass Index 26.5 Labs 01/11/25 19:12 01/11/25 19:12 Labs: Laboratory Results - last 48 hr 01/13/25 07:54 Estimat Average Glucose 103 Hemoglobin A1c % 5.2 Triglycerides 88 Cholesterol 143 LDL Cholesterol, Calc 74 HDL Cholesterol 52 Medications Medications Current Medications Al Hydroxide/Mg Hydroxide (Magnesium Hydrox/Alum Hydrox 30 Ml Oral.Susp) 30 ml PO Q6H PRN PRN Reason: Heartburn/Nausea Baclofen (Baclofen 10 Mg Tablet) 10 mg PO TID PRN PRN Reason: Opiate W/D Last Admin: 01/14/25 09:21 Dose: 10 mg Clonidine HCl (Clonidine Hcl 0.1 Mg Tablet) 0.1 mg PO Q4H PRN; Protocol PRN Reason: Opiate W/D symptoms Last Admin: 01/14/25 09:20 Dose: 0.1 mg Hydroxyzine HCl (Hydroxyzine Hcl 25 Mg Tablet) 25 mg PO Q6H PRN PRN Reason: mild anxiety Last Admin: 01/14/25 00:02 Dose: 25 mg Lorazepam (Lorazepam 1 Mg Tablet) 1 mg PO Q6H PRN PRN Reason: signs of alcohol withdrawal Magnesium Hydroxide (Milk Of Magnesia 30 Ml Oral.Susp) 30 ml PO DAILY PRN PRN Reason: Constipation Methadone HCl (Methadone Hcl 20 Mg/2 Ml Oral.Conc) 20 mg PO ONCE ONE Stop: 01/14/25 12:40 Nicotine Polacrilex (Nicotine Polacrilex 2 Mg Gum) 4 mg BUCCAL Q2H PRN PRN Reason: Nicotine Cravings Last Admin: 01/14/25 09:20 Dose: 4 mg Olanzapine (Olanzapine 5 Mg Tablet) 5 mg PO Q4H PRN PRN Reason: agitation/severe anxiety Last Admin: 01/14/25 04:06 Dose: 5 mg Ondansetron HCl (Ondansetron Odt 4 Mg Tab.Rapdis) 4 mg TRANSLINGU Q6H PRN PRN Reason: Nausea and Vomiting Thiamine HCl (Thiamine Hcl 100 Mg Tablet) 100 mg PO DAILY KATHIA Last Admin: 01/14/25 09:21 Dose: 100 mg Trazodone HCl (Trazodone Hcl 50 Mg Tablet) 50 mg PO BEDTIME MRX1 PRN PRN Reason: Insomnia Last Admin: 01/14/25 00:02 Dose: 50 mg Allergies Allergies Allergy/AdvReac Type Severity Reaction Status Date / Time No Known Allergies Allergy Verified 01/11/25 18:31 Assessment & Plan Assessment & Plan (1) Depression: Status: Acute Code(s): F32.A - Depression, unspecified Assessment and Plan: (r/o substance induced mood d/o vs MDD) (2) Posttraumatic stress disorder: Status: Acute Code(s): F43.10 - Post-traumatic stress disorder, unspecified (3) Opioid use disorder: Status: Acute Code(s): F11.90 - Opioid use, unspecified, uncomplicated (4) Alcohol use disorder: Status: Acute Code(s): F10.90 - Alcohol use, unspecified, uncomplicated (5) Cocaine use disorder: Status: Acute Code(s): F14.10 - Cocaine abuse, uncomplicated (6) Methamphetamine abuse: Status: Acute Code(s): F15.10 - Other stimulant abuse, uncomplicated Plan Mr. Salazar is a 39 yo SWM with h/o depression, previous bipolar dx, PTSD and polysubstance use d/o (methamphetamine, cocaine, opioid, and ETOH use), treated HCV, who self presented to the [facility] ED due to SI with a plan to ovedose, vague HI and substance use. Pt endorses current SI in the setting of homelessness, relationship stressors, difficulty getting employment due to criminal hx and polysubstance use. He denies current HI but admits to having HI in the past towards 'people who piss me off'. He has already been started on monitoring for ETOH w/d and opioid w/d on CIWA and COWS. Plan: Admitted to M3 for safety and stabilization Legal status- CV 15 min safety checks Milieu therapy Medical admission H&P completed by hospitalist, reviewed by t/w ETOH w/d - lorazepam prn per CIWA Opioid w/d- prn clonidine per COWS Psychotropic medication- Pt is currently only interested in starting a benzo, which t/w informed him is not appropriate, given recent h/o polysubstance use. He declines any other meds but t/w advised him that prn olanzapine (which he hasn't tried) and hydroxyzine are available if he changes his mind. 01/14: Pt requested re-starting methadone temporarily to get thru opioid w/d but doesn't want to take it long-term. Consulted addiction medicine, who recommended starting pt on 20 mg methadone. Input much appreciated. Ordered bentyl for stomach cramps prn. D/C'd CIWA, switched to lorazepam 1 mg q 6 hrs prn for objective signs of ETOH w/d. Patient educated on: medication risk/benefits Informed Consent: understands Reason for continued inpatient stay Substantial Risk for: med/psych decompensation Time Spent With Patient Time: Total time managing care of this patient today ____ minutes.
[2025-01-14] MEDS: methADONE HCl 20 MG/2 ML ORAL.CONC PO (13:09)
--- NOTE | 2025-01-14 14:49 | MHC.RECOVRN ---
Tw checked in with pt in 326-1. On approach pt was laying in bed, eyes closed. No restlessness or diaphoresis noted. Respirations even and unlabaored. Pt awoke to name being called and when asked how his withdrawal symptoms were after receving 20mg of methadone, he gave a thumbs up and closed his eyes again. He was able to elaborate and state he felt calmer and not not so anxious or restless. ACS to reevaluate pt again in the morning and is available as needed
[2025-01-15] VITALS: RESP 16
[2025-01-15 04:00] VITALS: RESP 18
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
[2025-01-15] MEDS: methADONE HCl 20 MG/2 ML ORAL.CONC PO (07:52)
[2025-01-15 08:00] VITALS: BP 119/75; PULSE 51; RESP 14; TEMP 36.2; O2SAT 98
[2025-01-15 16:00] VITALS: BP 137/92; PULSE 75
--- NOTE | 2025-01-15 16:02 | MHC.RECOVRN ---
Met with pt today on M3 to evaluate withdrawal symptoms after pt was initiated on 20mg methadone yesterday. On approach, pt was in the hallway, socializing with peers. He did not appear to be in any acute distress. No diaphoresis or restlessness noted. Pt agreed to meet with TW. Pt denies experiencing symptoms of withdrawal and feels his dose is adequate to manage symptoms. Chart review reflects pt had a COWS score of 19 last evening. When pt was questioned about symptoms at that time he states, I was just pissed because I wanted something for anxiety and they made me wait forever so I just took whatever I could get but it wasn't because of withdrawal, I was angry . Pt was educated about risk for overdose if he should return to use after tapering off methadone. Discussed and provided written education and resources for harm reduction techniques including utilizing [employer] for sterile supplies and drug testing, harm reduction techniques such as not sharing needles, utilizing a test shot when using a supply from a new supplier and using a smaller amount. Also provided education about the current drug supply and cutting agents used as well as the benefits of having naloxone on hand if he should return to use and utilizing [facility] to help decrease chances of fatal overdose. Pt verbalized understanding and denied any questions or concerns at this time. ACS team available as needed for ongoing support.
--- NOTE | 2025-01-15 19:00 | P.PNPSI_ITS ---
Subjective Subjective Date of Service: 01/15/25 Reason For Visit: SI Subjective Notes: Conditional Voluntary Interim History: Chart reviewed, case discussed with team Per nursing report- pt felt better after getting methadone yesterday during the day shift. He got agitated in the evening b/c he had to wait for his medication. He reportedly called the nurse a 'rodrickking ruddy and 'rodrickking lowell , requested IM haldol and threw a chair with goal of getting agitation meds. He received vistaril, trazodone, prn olanzapine 5 mg and calmed down T/W met w/ pt in the sensory room today, where he was lying on the floor on a blanket in the dark. He reports feeling better w/ the methadone overall today. Discussed events from last night. Pt shared that his anger and impulsivity have caused problems in his life. T/W expressed an understanding that he felt a sense of urgency to get his medications in the setting of PTSD and opioid w/d but informed him that he will be administratively discharged if he engages in any further threatening or aggressive behavior on the unit. He expressed an understanding. Pt reported that the olanzapine did help but stated that he also got lorazepam last night (which doesn't seem to be the case per my review of his MAR). He did receive 1 mg of lorazepam ~9 this am for signs of ETOH w/d. Per my discussion w/ nursing staff this afternoon, pt has been calm and cooperative today. He's been visible in the milieu this afternoon Mental Status Exam Mental Status Exam Narrative: Appearance: casual. grooming/hygiene wnl. good eye contact Attitude: cooperative Speech: Fluent and wnl in regard to volume, tone, prosody Motor activity: calm. no tics, tremors or dyskinesias. Steady gait Mood: 'better' Affect: appropriate, more reactive Thought process: goal directed and without evidence of formal thought disorder Thought content: Denies SI and violent ideation. Perception: does not appear to respond to internal stimuli Cognition grossly intact Insight: fair Judgment: fair Diagnostics Vital Signs (24Hr): Vital Signs - 24 hr 01/14/25 20:00 01/14/25 21:17 01/14/25 21:19 Temperature 97.9 F 97.2 F Pulse Rate 67 81 Respiratory Rate 18 18 Blood Pressure 134/90 H 162/107 H 162/107 H Pulse Oximetry 99 99 Oxygen Delivery Method Room Air Room Air 01/15/25 00:00 01/15/25 04:00 01/15/25 08:00 Temperature 97.2 F Pulse Rate 51 Respiratory Rate 16 18 14 Blood Pressure 119/75 Pulse Oximetry 98 Oxygen Delivery Method Room Air 01/15/25 16:00 Temperature Pulse Rate 75 Respiratory Rate Blood Pressure 137/92 H Pulse Oximetry Oxygen Delivery Method BMI result Body Mass Index 26.5 Labs 01/11/25 19:12 01/11/25 19:12 Medications Medications Current Medications Al Hydroxide/Mg Hydroxide (Magnesium Hydrox/Alum Hydrox 30 Ml Oral.Susp) 30 ml PO Q6H PRN PRN Reason: Heartburn/Nausea Baclofen (Baclofen 10 Mg Tablet) 10 mg PO TID PRN PRN Reason: Opiate W/D Last Admin: 01/14/25 21:19 Dose: 10 mg Clonidine HCl (Clonidine Hcl 0.1 Mg Tablet) 0.1 mg PO Q4H PRN; Protocol PRN Reason: Opiate W/D symptoms Last Admin: 01/14/25 21:19 Dose: 0.1 mg Dicyclomine HCl (Dicyclomine Hcl 10 Mg Capsule) 10 mg PO QIDACHS PRN PRN Reason: cramps Last Admin: 01/14/25 21:19 Dose: 10 mg Hydroxyzine HCl (Hydroxyzine Hcl 25 Mg Tablet) 25 mg PO Q6H PRN PRN Reason: mild anxiety Last Admin: 01/14/25 21:19 Dose: 25 mg Lorazepam (Lorazepam 1 Mg Tablet) 1 mg PO Q6H PRN PRN Reason: signs of alcohol withdrawal Last Admin: 01/15/25 07:52 Dose: 1 mg Magnesium Hydroxide (Milk Of Magnesia 30 Ml Oral.Susp) 30 ml PO DAILY PRN PRN Reason: Constipation Methadone HCl (Methadone Hcl 20 Mg/2 Ml Oral.Conc) 20 mg PO DAILY@0800 KATHIA Last Admin: 01/15/25 07:52 Dose: 20 mg Nicotine Polacrilex (Nicotine Polacrilex 2 Mg Gum) 4 mg BUCCAL Q2H PRN PRN Reason: Nicotine Cravings Last Admin: 01/15/25 17:16 Dose: 4 mg Olanzapine (Olanzapine 5 Mg Tablet) 5 mg PO Q4H PRN PRN Reason: agitation/severe anxiety Last Admin: 01/14/25 21:19 Dose: 5 mg Olanzapine (Olanzapine 5 Mg Tablet) 5 mg PO BID [facility] Ondansetron HCl (Ondansetron Odt 4 Mg Tab.Rapdis) 4 mg TRANSLINGU Q6H PRN PRN Reason: Nausea and Vomiting Thiamine HCl (Thiamine Hcl 100 Mg Tablet) 100 mg PO DAILY KATHIA Last Admin: 01/15/25 07:52 Dose: 100 mg Trazodone HCl (Trazodone Hcl 50 Mg Tablet) 50 mg PO BEDTIME MRX1 PRN PRN Reason: Insomnia Last Admin: 01/14/25 21:19 Dose: 50 mg Allergies Allergies Allergy/AdvReac Type Severity Reaction Status Date / Time No Known Allergies Allergy Verified 01/11/25 18:31 Assessment & Plan Assessment & Plan (1) Depression: Status: Acute Code(s): F32.A - Depression, unspecified Assessment and Plan: (r/o substance induced mood d/o vs MDD) (2) Posttraumatic stress disorder: Status: Acute Code(s): F43.10 - Post-traumatic stress disorder, unspecified (3) Opioid use disorder: Status: Acute Code(s): F11.90 - Opioid use, unspecified, uncomplicated (4) Alcohol use disorder: Status: Acute Code(s): F10.90 - Alcohol use, unspecified, uncomplicated (5) Cocaine use disorder: Status: Acute Code(s): F14.10 - Cocaine abuse, uncomplicated (6) Methamphetamine abuse: Status: Acute Code(s): F15.10 - Other stimulant abuse, uncomplicated Plan Mr. Salazar is a 39 yo SWM with h/o depression, previous bipolar dx, PTSD and polysubstance use d/o (methamphetamine, cocaine, opioid, and ETOH use), treated HCV, who self presented to the [facility] due to SI with a plan to ovedose, vague HI and substance use. Pt endorses current SI in the setting of homelessness, relationship stressors, difficulty getting employment due to criminal hx and polysubstance use. He denies current HI but admits to having HI in the past towards 'people who piss me off'. He has already been started on monitoring for ETOH w/d and opioid w/d on CIWA and COWS. Plan: Admitted to M3 for safety and stabilization Legal status- CV 15 min safety checks Milieu therapy Medical admission H&P completed by hospitalist, reviewed by t/w ETOH w/d - lorazepam prn per CIWA Opioid w/d- prn clonidine per COWS Psychotropic medication- Pt is currently only interested in starting a benzo, which t/w informed him is not appropriate, given recent h/o polysubstance use. He declines any other meds but t/w advised him that prn olanzapine (which he hasn't tried) and hydroxyzine are available if he changes his mind. 01/14: Pt requested re-starting methadone temporarily to get thru opioid w/d but doesn't want to take it long-term. Consulted addiction medicine, who recommended starting pt on 20 mg methadone. Input much appreciated. Ordered bentyl for stomach cramps prn. D/C'd CIWA, switched to lorazepam 1 mg q 6 hrs prn for objective signs of ETOH w/d. 01/15: Pt had episode of agitation last night when unable to get his meds as quickly as he wanted. He was agreeable w/ starting olanzapine 5 mg bid, as the prn last night had helped calm him down. Will start propranolol 10 mg tid for aggression/anxiety and for tx of HTN. Vital switched to unit standards. *PRN lorazepam ordered only for signs of ETOH w/d. Patient educated on: medication risk/benefits and therapeutic strategies Informed Consent: understands Reason for continued inpatient stay Substantial Risk for: med/psych decompensation Time Spent With Patient Time: Total time managing care of this patient today ____ minutes.
[2025-01-15 20:00] VITALS: BP 132/83; PULSE 61; RESP 16; TEMP 36.3; O2SAT 100
[2025-01-16 08:00] VITALS: PULSE 55
[2025-01-16] MEDS: methADONE HCl 20 MG/2 ML ORAL.CONC PO (08:01)
[2025-01-16 08:29] VITALS: BP 136/96; PULSE 55; RESP 18; TEMP 36.2; O2SAT 99
--- NOTE | 2025-01-16 09:22 | HO.PSYCHPN ---
Subjective Subjective Date of Service: 01/16/25 Reason For Visit: SI Interim History: Chart reviewed, case discussed with team I'm still feeling anxious and agitated. He hasn't had behavioral outbursts last 24 hours. He has been calm.Visible on the unit. Denies SI/AVH. Review of Systems Review of Systems Denies any shortness of breath, chest pain, headaches, dysuria, abdominal pain or discomfort, nausea, vomiting or diarrhea. Denies fever or chills. Reports severe anxiety. Yes all other systems are reviewed and are negative Mental Status Exam Mental Status Exam Narrative: Appearance: casual. grooming/hygiene wnl. good eye contact Attitude: cooperative Speech: Fluent and wnl in regard to volume, tone, prosody Motor activity: calm. no tics, tremors or dyskinesias. Steady gait Mood: 'better' Affect: appropriate, more reactive Thought process: goal directed and without evidence of formal thought disorder Thought content: Denies SI and violent ideation. Perception: does not appear to respond to internal stimuli Cognition grossly intact Insight: fair Judgment: fair Diagnostics Vital Signs (24Hr): Vital Signs - 24 hr 01/15/25 16:00 01/15/25 20:00 01/16/25 08:29 Temperature 97.4 F 97.2 F Pulse Rate 75 61 55 Respiratory Rate 16 18 Blood Pressure 137/92 H 132/83 136/96 H Pulse Oximetry 100 99 Oxygen Delivery Method Room Air Room Air BMI result Body Mass Index 26.5 Labs 01/11/25 19:12 01/11/25 19:12 Medications Medications Current Medications Al Hydroxide/Mg Hydroxide (Magnesium Hydrox/Alum Hydrox 30 Ml Oral.Susp) 30 ml PO Q6H PRN PRN Reason: Heartburn/Nausea Baclofen (Baclofen 10 Mg Tablet) 10 mg PO TID PRN PRN Reason: Opiate W/D Last Admin: 01/16/25 08:47 Dose: 10 mg Clonidine HCl (Clonidine Hcl 0.1 Mg Tablet) 0.1 mg PO Q4H PRN; Protocol PRN Reason: Opiate W/D symptoms Last Admin: 01/14/25 21:19 Dose: 0.1 mg Dicyclomine HCl (Dicyclomine Hcl 10 Mg Capsule) 10 mg PO QIDACHS PRN PRN Reason: cramps Last Admin: 01/15/25 19:52 Dose: 10 mg Hydroxyzine HCl (Hydroxyzine Hcl 25 Mg Tablet) 25 mg PO Q6H PRN PRN Reason: mild anxiety Last Admin: 01/16/25 08:47 Dose: 25 mg Lorazepam (Lorazepam 1 Mg Tablet) 1 mg PO Q6H PRN PRN Reason: signs of alcohol withdrawal Last Admin: 01/15/25 07:52 Dose: 1 mg Magnesium Hydroxide (Milk Of Magnesia 30 Ml Oral.Susp) 30 ml PO DAILY PRN PRN Reason: Constipation Methadone HCl (Methadone Hcl 20 Mg/2 Ml Oral.Conc) 20 mg PO DAILY@0800 [facility] Last Admin: 01/16/25 08:01 Dose: 20 mg Nicotine Polacrilex (Nicotine Polacrilex 2 Mg Gum) 4 mg BUCCAL Q2H PRN PRN Reason: Nicotine Cravings Last Admin: 01/16/25 08:47 Dose: 4 mg Olanzapine (Olanzapine 5 Mg Tablet) 5 mg PO Q4H PRN PRN Reason: agitation/severe anxiety Last Admin: 01/14/25 21:19 Dose: 5 mg Olanzapine (Olanzapine 5 Mg Tablet) 5 mg PO BID [facility] Last Admin: 01/16/25 08:47 Dose: 5 mg Ondansetron HCl (Ondansetron Odt 4 Mg Tab.Rapdis) 4 mg TRANSLINGU Q6H PRN PRN Reason: Nausea and Vomiting Propranolol HCl (Propranolol Hcl 10 Mg Tablet) 10 mg PO TID [facility]; Protocol Last Admin: 01/16/25 08:47 Dose: 10 mg Thiamine HCl (Thiamine Hcl 100 Mg Tablet) 100 mg PO DAILY [facility] Last Admin: 01/16/25 08:47 Dose: 100 mg Trazodone HCl (Trazodone Hcl 50 Mg Tablet) 50 mg PO BEDTIME MRX1 PRN PRN Reason: Insomnia Last Admin: 01/15/25 19:53 Dose: 50 mg Allergies Allergies Allergy/AdvReac Type Severity Reaction Status Date / Time No Known Allergies Allergy Verified 01/11/25 18:31 Assessment & Plan Assessment & Plan (1) Depression: Status: Acute Code(s): F32.A - Depression, unspecified Assessment and Plan: (r/o substance induced mood d/o vs MDD) (2) Posttraumatic stress disorder: Status: Acute Code(s): F43.10 - Post-traumatic stress disorder, unspecified (3) Opioid use disorder: Status: Acute Code(s): F11.90 - Opioid use, unspecified, uncomplicated (4) Alcohol use disorder: Status: Acute Code(s): F10.90 - Alcohol use, unspecified, uncomplicated (5) Cocaine use disorder: Status: Acute Code(s): F14.10 - Cocaine abuse, uncomplicated (6) Methamphetamine abuse: Status: Acute Code(s): F15.10 - Other stimulant abuse, uncomplicated Plan Mr. Salazar is a 39 yo SWM with h/o depression, previous bipolar dx, PTSD and polysubstance use d/o (methamphetamine, cocaine, opioid, and ETOH use), treated HCV, who self presented to the [facility] due to SI with a plan to ovedose, vague HI and substance use. Pt endorses current SI in the setting of homelessness, relationship stressors, difficulty getting employment due to criminal hx and polysubstance use. He denies current HI but admits to having HI in the past towards 'people who piss me off'. He has already been started on monitoring for ETOH w/d and opioid w/d on CIWA and COWS. Plan: Admitted to M3 for safety and stabilization Legal status- CV 15 min safety checks Milieu therapy Medical admission H&P completed by hospitalist, reviewed by t/w ETOH w/d - lorazepam prn per CIWA Opioid w/d- prn clonidine per COWS Psychotropic medication- Pt is currently only interested in starting a benzo, which t/w informed him is not appropriate, given recent h/o polysubstance use. He declines any other meds but t/w advised him that prn olanzapine (which he hasn't tried) and hydroxyzine are available if he changes his mind. 01/14: Pt requested re-starting methadone temporarily to get thru opioid w/d but doesn't want to take it long-term. Consulted addiction medicine, who recommended starting pt on 20 mg methadone. Input much appreciated. Ordered bentyl for stomach cramps prn. D/C'd CIWA, switched to lorazepam 1 mg q 6 hrs prn for objective signs of ETOH w/d. 01/15: Pt had episode of agitation last night when unable to get his meds as quickly as he wanted. He was agreeable w/ starting olanzapine 5 mg bid, as the prn last night had helped calm him down. Will start propranolol 10 mg tid for aggression/anxiety and for tx of HTN. Vital switched to unit standards. *PRN lorazepam ordered only for signs of ETOH w/d. 01/16: Just started Olanzapine. continue current management and treatment plan. Reason for continued inpatient stay Substantial Risk for: harm to others, inability to function and rapid decompensation Time Spent With Patient Time: Total time managing care of this patient today ____ minutes.
[2025-01-16 14:38] VITALS: BP 154/82; PULSE 64
[2025-01-16 15:46] VITALS: PULSE 54
[2025-01-16 20:00] VITALS: BP 160/98; PULSE 61; RESP 16; TEMP 36.6; O2SAT 98
[2025-01-16 23:08] VITALS: PULSE 59
[2025-01-17] MEDS: methADONE HCl 20 MG/2 ML ORAL.CONC PO (07:44)
[2025-01-17 08:00] VITALS: BP 125/82; PULSE 55; RESP 16; TEMP 36.4; O2SAT 98
--- NOTE | 2025-01-17 09:47 | HO.PSYCHPN ---
Subjective Subjective Date of Service: 01/17/25 Reason For Visit: SI Interim History: Chart reviewed, case discussed with RN Remains anxious and worried about what's next after DC. He says he is worried because in the past he has had issues with explosiveness and anger while at the programs and I get kicked out . He reports anger management and explosiveness are problematic for him. He was offered mood stabilizers in the past. He has a history of treated Hep C. He was interested in exploring mood stabilization. Discussed Trileptal as an option. He agreed. He hasn't had behavioral outbursts last 24 hours. He has been calm.Visible on the unit. Denies SI/AVH. Asking for Clifford Lozenges instead of gum. Review of Systems Review of Systems Denies any shortness of breath, chest pain, headaches, dysuria, abdominal pain or discomfort, nausea, vomiting or diarrhea. Denies fever or chills. Reports severe anxiety. Yes all other systems are reviewed and are negative Mental Status Exam Mental Status Exam Narrative: Appearance: casual. grooming/hygiene wnl. good eye contact Attitude: cooperative Speech: Fluent and wnl in regard to volume, tone, prosody Motor activity: calm. no tics, tremors or dyskinesias. Steady gait Mood: 'better' Affect: appropriate, more reactive Thought process: goal directed and without evidence of formal thought disorder Thought content: Denies SI and violent ideation. Perception: does not appear to respond to internal stimuli Cognition grossly intact Insight: fair Judgment: fair Diagnostics Vital Signs (24Hr): Vital Signs - 24 hr 01/16/25 14:38 01/16/25 20:00 01/17/25 08:00 Temperature 97.9 F 97.5 F Pulse Rate 64 61 55 Respiratory Rate 16 16 Blood Pressure 154/82 H 160/98 H 125/82 Pulse Oximetry 98 98 Oxygen Delivery Method Room Air Room Air BMI result Body Mass Index 26.5 Labs 01/11/25 19:12 01/11/25 19:12 Medications Medications Current Medications Al Hydroxide/Mg Hydroxide (Magnesium Hydrox/Alum Hydrox 30 Ml Oral.Susp) 30 ml PO Q6H PRN PRN Reason: Heartburn/Nausea Baclofen (Baclofen 10 Mg Tablet) 10 mg PO TID PRN PRN Reason: Opiate W/D Last Admin: 01/17/25 08:46 Dose: 10 mg Clonidine HCl (Clonidine Hcl 0.1 Mg Tablet) 0.1 mg PO Q4H PRN; Protocol PRN Reason: Opiate W/D symptoms Last Admin: 01/16/25 20:10 Dose: 0.1 mg Dicyclomine HCl (Dicyclomine Hcl 10 Mg Capsule) 10 mg PO QIDACHS PRN PRN Reason: cramps Last Admin: 01/16/25 20:10 Dose: 10 mg Hydroxyzine HCl (Hydroxyzine Hcl 25 Mg Tablet) 25 mg PO Q6H PRN PRN Reason: mild anxiety Last Admin: 01/16/25 20:10 Dose: 25 mg Lorazepam (Lorazepam 1 Mg Tablet) 1 mg PO Q6H PRN PRN Reason: signs of alcohol withdrawal Last Admin: 01/15/25 07:52 Dose: 1 mg Magnesium Hydroxide (Milk Of Magnesia 30 Ml Oral.Susp) 30 ml PO DAILY PRN PRN Reason: Constipation Methadone HCl (Methadone Hcl 20 Mg/2 Ml Oral.Conc) 20 mg PO DAILY@0800 [facility] Last Admin: 01/17/25 07:44 Dose: 20 mg Nicotine Polacrilex (Nicotine Polacrilex 2 Mg Gum) 4 mg BUCCAL Q2H PRN PRN Reason: Nicotine Cravings Last Admin: 01/17/25 07:45 Dose: 4 mg Olanzapine (Olanzapine 5 Mg Tablet) 5 mg PO Q4H PRN PRN Reason: agitation/severe anxiety Last Admin: 01/14/25 21:19 Dose: 5 mg Olanzapine (Olanzapine 5 Mg Tablet) 5 mg PO BID [facility] Last Admin: 01/17/25 08:46 Dose: 5 mg Ondansetron HCl (Ondansetron Odt 4 Mg Tab.Rapdis) 4 mg TRANSLINGU Q6H PRN PRN Reason: Nausea and Vomiting Propranolol HCl (Propranolol Hcl 10 Mg Tablet) 10 mg PO TID [facility]; Protocol Last Admin: 01/17/25 08:46 Dose: 10 mg Thiamine HCl (Thiamine Hcl 100 Mg Tablet) 100 mg PO DAILY [facility] Last Admin: 01/17/25 08:46 Dose: 100 mg Trazodone HCl (Trazodone Hcl 50 Mg Tablet) 50 mg PO BEDTIME MRX1 PRN PRN Reason: Insomnia Last Admin: 01/16/25 23:10 Dose: 50 mg Allergies Allergies Allergy/AdvReac Type Severity Reaction Status Date / Time No Known Allergies Allergy Verified 01/11/25 18:31 Assessment & Plan Assessment & Plan (1) Depression: Status: Acute Code(s): F32.A - Depression, unspecified Assessment and Plan: (r/o substance induced mood d/o vs MDD) (2) Posttraumatic stress disorder: Status: Acute Code(s): F43.10 - Post-traumatic stress disorder, unspecified (3) Opioid use disorder: Status: Acute Code(s): F11.90 - Opioid use, unspecified, uncomplicated (4) Alcohol use disorder: Status: Acute Code(s): F10.90 - Alcohol use, unspecified, uncomplicated (5) Cocaine use disorder: Status: Acute Code(s): F14.10 - Cocaine abuse, uncomplicated (6) Methamphetamine abuse: Status: Acute Code(s): F15.10 - Other stimulant abuse, uncomplicated Plan Mr. Salazar is a 39 yo SWM with h/o depression, previous bipolar dx, PTSD and polysubstance use d/o (methamphetamine, cocaine, opioid, and ETOH use), treated HCV, who self presented to the [facility] due to SI with a plan to ovedose, vague HI and substance use. Pt endorses current SI in the setting of homelessness, relationship stressors, difficulty getting employment due to criminal hx and polysubstance use. He denies current HI but admits to having HI in the past towards 'people who piss me off'. He has already been started on monitoring for ETOH w/d and opioid w/d on CIWA and COWS. Plan: Admitted to M3 for safety and stabilization Legal status- CV 15 min safety checks Milieu therapy Medical admission H&P completed by hospitalist, reviewed by t/w ETOH w/d - lorazepam prn per CIWA Opioid w/d- prn clonidine per COWS Psychotropic medication- Pt is currently only interested in starting a benzo, which t/w informed him is not appropriate, given recent h/o polysubstance use. He declines any other meds but t/w advised him that prn olanzapine (which he hasn't tried) and hydroxyzine are available if he changes his mind. 01/14: Pt requested re-starting methadone temporarily to get thru opioid w/d but doesn't want to take it long-term. Consulted addiction medicine, who recommended starting pt on 20 mg methadone. Input much appreciated. Ordered bentyl for stomach cramps prn. D/C'd CIWA, switched to lorazepam 1 mg q 6 hrs prn for objective signs of ETOH w/d. 01/15: Pt had episode of agitation last night when unable to get his meds as quickly as he wanted. He was agreeable w/ starting olanzapine 5 mg bid, as the prn last night had helped calm him down. Will start propranolol 10 mg tid for aggression/anxiety and for tx of HTN. Vital switched to unit standards. *PRN lorazepam ordered only for signs of ETOH w/d. 01/16: Just started Olanzapine. continue current management and treatment plan. 01/17: Start Trileptal 300 mg BID. Consider titration depending on tolerability. Reason for continued inpatient stay Substantial Risk for: harm to others, inability to function and rapid decompensation Time Spent With Patient Time: Total time managing care of this patient today ____ minutes.
[2025-01-17] MEDS: Nicotine Polacrilex Lozenge 4 MG LOZENGE BUCCAL ×5 (13:10→22:12)
[2025-01-17 15:45] VITALS: BP 131/86; PULSE 56
[2025-01-17 15:48] VITALS: PULSE 56
[2025-01-17 19:50] VITALS: BP 153/85; PULSE 52; RESP 16; TEMP 36.3; O2SAT 97
[2025-01-17 22:12] VITALS: BP 149/93; PULSE 60
[2025-01-18] MEDS: Nicotine Polacrilex Lozenge 4 MG LOZENGE BUCCAL ×7 (07:46→22:29)
[2025-01-18] MEDS: methADONE HCl 20 MG/2 ML ORAL.CONC PO (07:46)
[2025-01-18 08:00] VITALS: BP 118/74; PULSE 59; RESP 16; TEMP 36.6; O2SAT 95
[2025-01-18 09:13] VITALS: BP 118/74; PULSE 59
--- NOTE | 2025-01-18 10:38 | P.PNPSI_ITS ---
Subjective Subjective Date of Service: 01/18/25 Reason For Visit: SI Subjective Notes: Conditional Voluntary Interim History: Chart reviewed, case discussed with team No behavioral issues over the weekend. Started on Trileptal by covering psychiatrist slept 7 hrs last prn ativan given on Saturday (for ETOH w/d) He endorses ongoing depression and anxiey and initially denied significant improvement; however he notes that he's able to tolerate being around other people more easily than on admission. He attended groups today. He denies SI or violent ideation. Anger has improved overall. Opioid w/d sx have significantly improved and he spoke w/ the addiction medicine specialist earlier today about tapering off the methadone (per pt prefernece). Pt's BP has been intermittently elevated, which he attributes partially to anxiety. He denies feeling dizzy w/ the propranolol. Denies feeling overly sedated from his meds. Mental Status Exam Mental Status Exam Narrative: Appearance: casual. grooming/hygiene wnl. good eye contact Attitude: cooperative Speech: Fluent and wnl in regard to volume, tone, prosody Motor activity: calm. no tics, tremors or dyskinesias. Steady gait Mood: as noted above Affect: appropriate, reactive Thought process: goal directed and without evidence of formal thought disorder Thought content: Denies SI and violent ideation. Perception: does not appear to respond to internal stimuli Cognition grossly intact Insight: intact Judgment: intact Diagnostics Vital Signs (24Hr): Vital Signs - 24 hr 01/17/25 15:45 01/17/25 19:50 01/17/25 22:12 Temperature 97.3 F Pulse Rate 56 52 60 Respiratory Rate 16 Blood Pressure 131/86 153/85 H 149/93 H Pulse Oximetry 97 Oxygen Delivery Method Room Air 01/18/25 08:00 01/18/25 09:13 Temperature 97.9 F Pulse Rate 59 59 Respiratory Rate 16 Blood Pressure 118/74 118/74 Pulse Oximetry 95 Oxygen Delivery Method Room Air BMI result Body Mass Index 26.5 Labs 01/11/25 19:12 01/11/25 19:12 Medications Medications Current Medications Al Hydroxide/Mg Hydroxide (Magnesium Hydrox/Alum Hydrox 30 Ml Oral.Susp) 30 ml PO Q6H PRN PRN Reason: Heartburn/Nausea Baclofen (Baclofen 10 Mg Tablet) 10 mg PO TID PRN PRN Reason: Opiate W/D Last Admin: 01/17/25 08:46 Dose: 10 mg Clonidine HCl (Clonidine Hcl 0.1 Mg Tablet) 0.1 mg PO Q4H PRN; Protocol PRN Reason: Opiate W/D symptoms Last Admin: 01/16/25 20:10 Dose: 0.1 mg Dicyclomine HCl (Dicyclomine Hcl 10 Mg Capsule) 10 mg PO QIDACHS PRN PRN Reason: cramps Last Admin: 01/16/25 20:10 Dose: 10 mg Hydroxyzine HCl (Hydroxyzine Hcl 25 Mg Tablet) 25 mg PO Q6H PRN PRN Reason: mild anxiety Last Admin: 01/16/25 20:10 Dose: 25 mg Lorazepam (Lorazepam 1 Mg Tablet) 1 mg PO Q6H PRN PRN Reason: signs of alcohol withdrawal Last Admin: 01/15/25 07:52 Dose: 1 mg Magnesium Hydroxide (Milk Of Magnesia 30 Ml Oral.Susp) 30 ml PO DAILY PRN PRN Reason: Constipation Methadone HCl (Methadone Hcl 20 Mg/2 Ml Oral.Conc) 20 mg PO DAILY@0800 [facility] Last Admin: 01/18/25 07:46 Dose: 20 mg Nicotine Polacrilex (Nicotine Polacrilex 2 Mg Gum) 4 mg BUCCAL Q2H PRN PRN Reason: Nicotine Cravings Last Admin: 01/18/25 09:18 Dose: 4 mg Nicotine Polacrilex (Nicotine Polacrilex Lozenge 4 Mg Lozenge) 4 mg BUCCAL Q2H PRN PRN Reason: Nicotine Cravings Last Admin: 01/18/25 09:54 Dose: 4 mg Olanzapine (Olanzapine 5 Mg Tablet) 5 mg PO Q4H PRN PRN Reason: agitation/severe anxiety Last Admin: 01/17/25 18:08 Dose: 5 mg Olanzapine (Olanzapine 5 Mg Tablet) 5 mg PO BID [facility] Last Admin: 01/18/25 09:14 Dose: 5 mg Ondansetron HCl (Ondansetron Odt 4 Mg Tab.Rapdis) 4 mg TRANSLINGU Q6H PRN PRN Reason: Nausea and Vomiting Oxcarbazepine (Oxcarbazepine 300 Mg Tablet) 300 mg PO BID [facility] Last Admin: 01/18/25 09:13 Dose: 300 mg Propranolol HCl (Propranolol Hcl 10 Mg Tablet) 10 mg PO TID [facility]; Protocol Last Admin: 01/18/25 09:13 Dose: 10 mg Thiamine HCl (Thiamine Hcl 100 Mg Tablet) 100 mg PO DAILY [facility] Last Admin: 01/18/25 09:14 Dose: 100 mg Trazodone HCl (Trazodone Hcl 50 Mg Tablet) 50 mg PO BEDTIME MRX1 PRN PRN Reason: Insomnia Last Admin: 01/17/25 22:13 Dose: 50 mg Allergies Allergies Allergy/AdvReac Type Severity Reaction Status Date / Time No Known Allergies Allergy Verified 01/11/25 18:31 Assessment & Plan Assessment & Plan (1) Depression: Status: Acute Code(s): F32.A - Depression, unspecified Assessment and Plan: (r/o substance induced mood d/o vs MDD) (2) Posttraumatic stress disorder: Status: Acute Code(s): F43.10 - Post-traumatic stress disorder, unspecified (3) Opioid use disorder: Status: Acute Code(s): F11.90 - Opioid use, unspecified, uncomplicated (4) Alcohol use disorder: Status: Acute Code(s): F10.90 - Alcohol use, unspecified, uncomplicated (5) Cocaine use disorder: Status: Acute Code(s): F14.10 - Cocaine abuse, uncomplicated (6) Methamphetamine abuse: Status: Acute Code(s): F15.10 - Other stimulant abuse, uncomplicated Plan Mr. Salazar is a 39 yo SWM with h/o depression, previous bipolar dx, PTSD and polysubstance use d/o (methamphetamine, cocaine, opioid, and ETOH use), treated HCV, who self presented to the [facility] [place] [facility] due to SI with a plan to ovedose, vague HI and substance use. Pt endorses current SI in the setting of homelessness, relationship stressors, difficulty getting employment due to criminal hx and polysubstance use. He denies current HI but admits to having HI in the past towards 'people who piss me off'. He has already been started on monitoring for ETOH w/d and opioid w/d on CIWA and COWS. Plan: Admitted to [facility] for safety and stabilization Legal status- CV 15 min safety checks Milieu therapy Medical admission H&P completed by hospitalist, reviewed by t/w ETOH w/d - lorazepam prn per CIWA Opioid w/d- prn clonidine per COWS Psychotropic medication- Pt is currently only interested in starting a benzo, which t/w informed him is not appropriate, given recent h/o polysubstance use. He declines any other meds but t/w advised him that prn olanzapine (which he hasn't tried) and hydroxyzine are available if he changes his mind. 01/14: Pt requested re-starting methadone temporarily to get thru opioid w/d but doesn't want to take it long-term. Consulted addiction medicine, who recommended starting pt on 20 mg methadone. Input much appreciated. Ordered bentyl for stomach cramps prn. D/C'd CIWA, switched to lorazepam 1 mg q 6 hrs prn for objective signs of ETOH w/d. 01/15: Pt had episode of agitation last night when unable to get his meds as quickly as he wanted. He was agreeable w/ starting olanzapine 5 mg bid, as the prn last night had helped calm him down. Will start propranolol 10 mg tid for aggression/anxiety and for tx of HTN. Vital switched to unit standards. *PRN lorazepam ordered only for signs of ETOH w/d. 01/16: Just started Olanzapine. continue current management and treatment plan. 01/17: Start Trileptal 300 mg BID. Consider titration depending on tolerability. 01/18: Mood has improved overall but remains anxious/depressed. Denies med SE. D/C'd prn lorazepam (for ETOH w/d). 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 Pt is agreeable w/ plan to titrate olanzapine to 10 mg starting tonight, continue 5 mg qam and to titrate propranolol to 20 mg tid for anger, anxiety, and HTN. Patient educated on: medication risk/benefits Informed Consent: understands Reason for continued inpatient stay Substantial Risk for: med/psych decompensation Time Spent With Patient Time: Total time managing care of this patient today ____ minutes.
--- NOTE | 2025-01-18 11:52 | HO.ADDICTPRO ---
Subjective Subjective Date of Service: 01/18/25 Reason For Visit: SI Interim History: Patient is a 39 year old male admitted to unit with Met with human resources benefits assistant--notes reviewed Patient requesting methadone taper--stating he does not with to continue methadone at discharge. methadone 20mg initiated without issue. Patient seen in follow up. He states he has been taking methadone 20mg since 01/15 an wants to continue tapering dose. He denies any withdrawal sx. Denies nausea, vomiting, loose stools, body aches, etc. Inquired about irritability that was addressed in notes, as cravings and/or withdrawal can often present with mood lability. Patient does not believe this is the case, and feels his mood is unrelated. Review of Systems Constitutional: Reports as per HPI and Reports no additional constitutional complaints Mental Status Exam Mental Status Exam Level of Consciousness: Awake, Appropriate and Alert Patient Behavior: Appropriate and Cooperative Affect Description: Calm Speech Pattern: Clear Thought Process: Intact Thought Content: positive for Intact Judgement: Fair Diagnostics Vital Signs (24Hr): Vital Signs - 24 hr 01/17/25 15:45 01/17/25 19:50 01/17/25 22:12 Temperature 97.3 F Pulse Rate 56 52 60 Respiratory Rate 16 Blood Pressure 131/86 153/85 H 149/93 H Pulse Oximetry 97 Oxygen Delivery Method Room Air 01/18/25 08:00 01/18/25 09:13 Temperature 97.9 F Pulse Rate 59 59 Respiratory Rate 16 Blood Pressure 118/74 118/74 Pulse Oximetry 95 Oxygen Delivery Method Room Air BMI result Body Mass Index 26.5 Labs 01/11/25 19:12 01/11/25 19:12 Medications Medications Current Medications Al Hydroxide/Mg Hydroxide (Magnesium Hydrox/Alum Hydrox 30 Ml Oral.Susp) 30 ml PO Q6H PRN PRN Reason: Heartburn/Nausea Baclofen (Baclofen 10 Mg Tablet) 10 mg PO TID PRN PRN Reason: Opiate W/D Last Admin: 01/17/25 08:46 Dose: 10 mg Clonidine HCl (Clonidine Hcl 0.1 Mg Tablet) 0.1 mg PO Q4H PRN; Protocol PRN Reason: Opiate W/D symptoms Last Admin: 01/16/25 20:10 Dose: 0.1 mg Dicyclomine HCl (Dicyclomine Hcl 10 Mg Capsule) 10 mg PO QIDACHS PRN PRN Reason: cramps Last Admin: 01/16/25 20:10 Dose: 10 mg Hydroxyzine HCl (Hydroxyzine Hcl 25 Mg Tablet) 25 mg PO Q6H PRN PRN Reason: mild anxiety Last Admin: 01/16/25 20:10 Dose: 25 mg Magnesium Hydroxide (Milk Of Magnesia 30 Ml Oral.Susp) 30 ml PO DAILY PRN PRN Reason: Constipation Methadone HCl (Methadone Hcl 20 Mg/2 Ml Oral.Conc) 10 mg PO DAILY@0800 [facility] Nicotine Polacrilex (Nicotine Polacrilex 2 Mg Gum) 4 mg BUCCAL Q2H PRN PRN Reason: Nicotine Cravings Last Admin: 01/18/25 09:18 Dose: 4 mg Nicotine Polacrilex (Nicotine Polacrilex Lozenge 4 Mg Lozenge) 4 mg BUCCAL Q2H PRN PRN Reason: Nicotine Cravings Last Admin: 01/18/25 09:54 Dose: 4 mg Olanzapine (Olanzapine 5 Mg Tablet) 5 mg PO Q4H PRN PRN Reason: agitation/severe anxiety Last Admin: 01/17/25 18:08 Dose: 5 mg Olanzapine (Olanzapine 5 Mg Tablet) 5 mg PO BID [facility] Last Admin: 01/18/25 09:14 Dose: 5 mg Ondansetron HCl (Ondansetron Odt 4 Mg Tab.Rapdis) 4 mg TRANSLINGU Q6H PRN PRN Reason: Nausea and Vomiting Oxcarbazepine (Oxcarbazepine 300 Mg Tablet) 300 mg PO BID [facility] Last Admin: 01/18/25 09:13 Dose: 300 mg Propranolol HCl (Propranolol Hcl 10 Mg Tablet) 10 mg PO TID [facility]; Protocol Last Admin: 01/18/25 09:13 Dose: 10 mg Thiamine HCl (Thiamine Hcl 100 Mg Tablet) 100 mg PO DAILY [facility] Last Admin: 01/18/25 09:14 Dose: 100 mg Trazodone HCl (Trazodone Hcl 50 Mg Tablet) 50 mg PO BEDTIME MRX1 PRN PRN Reason: Insomnia Last Admin: 01/17/25 22:13 Dose: 50 mg Allergies Allergies Allergy/AdvReac Type Severity Reaction Status Date / Time No Known Allergies Allergy Verified 01/11/25 18:31 Assessment & Plan Assessment & Plan (1) Opioid use disorder: Status: Acute Code(s): F11.90 - Opioid use, unspecified, uncomplicated Assessment and Plan: methadone dose 10mg in AM (01/19) per patient request -01/20 5mg and D/C reinforced risk of overdose with use of opiates after abstaining --reviewed narcan, safe spot, etc. encouraged patient to request taper be paused, or dose increased if he notes withdrawal sx, increase in cravings, etc. Total time managing care of this patient today __20__ minutes.
[2025-01-18 15:03] VITALS: BP 134/90; PULSE 60
[2025-01-18 19:50] VITALS: BP 144/66; PULSE 61; RESP 16; TEMP 36.5; O2SAT 96
[2025-01-18 22:27] VITALS: BP 136/84; PULSE 56
[2025-01-19] MEDS: Nicotine Polacrilex Lozenge 4 MG LOZENGE BUCCAL ×6 (07:23→22:08)
[2025-01-19 08:00] VITALS: BP 121/77; PULSE 55; RESP 16; TEMP 36.3; O2SAT 98
[2025-01-19] MEDS: methADONE HCl 20 MG/2 ML ORAL.CONC 10 MG PO (08:10)
[2025-01-19 15:42] VITALS: BP 123/72; PULSE 59
--- NOTE | 2025-01-19 20:08 | HO.PSYCHPN ---
Subjective Subjective Date of Service: 01/19/25 Reason For Visit: SI Subjective Notes: Conditional Voluntary Interim History: Chart reviewed, case discussed with team Pt attended groups and has been visible in the milieu. Interacting appropriately in groups and with staff and peers. Denies significant improvement in anxiety/depression. Reports decreased anger. Denies SI. Denies AHVH. Denies any issues w tapering methadone today BP wnl since titrating the propranolol to 20 mg tid. HR 55 this am. Pt denies dizziness, increased sedation or any other SE w/ the med changes. Agreeable w/ continuing current med regimen Medication Compliance: Yes Mental Status Exam Mental Status Exam Narrative: Appearance: Casually dressed. Grooming/hygiene wnl. Eye contact wnl Attitude: Cooperative Speech: Fluent and wnl in regard to volume, tone, prosody Motor activity: Calm and without any tics, tremors or dyskinesias. Steady gait Mood: as noted above Affect: appropriate, constricted Thought process: goal directed and without evidence of formal thought disorder Thought content: as noted above. Denies SI/violent ideation Perception: Denies AH/VH and does not appear to respond to internal stimuli Alert/oriented in all spheres Cognition grossly intact Insight: intact Judgment: intact Diagnostics Vital Signs (24Hr): Vital Signs - 24 hr 01/18/25 22:27 01/19/25 08:00 01/19/25 15:42 Temperature 97.3 F Pulse Rate 56 55 59 Respiratory Rate 16 Blood Pressure 136/84 121/77 123/72 Pulse Oximetry 98 Oxygen Delivery Method Room Air BMI result Body Mass Index 26.5 Labs 01/11/25 19:12 01/11/25 19:12 Medications Medications Current Medications Al Hydroxide/Mg Hydroxide (Magnesium Hydrox/Alum Hydrox 30 Ml Oral.Susp) 30 ml PO Q6H PRN PRN Reason: Heartburn/Nausea Baclofen (Baclofen 10 Mg Tablet) 10 mg PO TID PRN PRN Reason: Opiate W/D Last Admin: 01/17/25 08:46 Dose: 10 mg Clonidine HCl (Clonidine Hcl 0.1 Mg Tablet) 0.1 mg PO Q4H PRN; Protocol PRN Reason: Opiate W/D symptoms Last Admin: 01/16/25 20:10 Dose: 0.1 mg Dicyclomine HCl (Dicyclomine Hcl 10 Mg Capsule) 10 mg PO QIDACHS PRN PRN Reason: cramps Last Admin: 01/16/25 20:10 Dose: 10 mg Hydroxyzine HCl (Hydroxyzine Hcl 25 Mg Tablet) 25 mg PO Q6H PRN PRN Reason: mild anxiety Last Admin: 01/16/25 20:10 Dose: 25 mg Magnesium Hydroxide (Milk Of Magnesia 30 Ml Oral.Susp) 30 ml PO DAILY PRN PRN Reason: Constipation Methadone HCl (Methadone Hcl 20 Mg/2 Ml Oral.Conc) 5 mg PO ONCE ONE Stop: 01/20/25 08:01 Nicotine Polacrilex (Nicotine Polacrilex 2 Mg Gum) 4 mg BUCCAL Q2H PRN PRN Reason: Nicotine Cravings Last Admin: 01/19/25 17:09 Dose: 4 mg Nicotine Polacrilex (Nicotine Polacrilex Lozenge 4 Mg Lozenge) 4 mg BUCCAL Q2H PRN PRN Reason: Nicotine Cravings Last Admin: 01/19/25 19:57 Dose: 4 mg Olanzapine (Olanzapine 5 Mg Tablet) 5 mg PO Q4H PRN PRN Reason: agitation/severe anxiety Last Admin: 01/19/25 17:09 Dose: 5 mg Olanzapine (Olanzapine 10 Mg Tablet) 10 mg PO BEDTIME [facility] Last Admin: 01/18/25 22:25 Dose: 10 mg Olanzapine (Olanzapine 5 Mg Tablet) 5 mg PO DAILY [facility] Last Admin: 01/19/25 08:08 Dose: 5 mg Ondansetron HCl (Ondansetron Odt 4 Mg Tab.Rapdis) 4 mg TRANSLINGU Q6H PRN PRN Reason: Nausea and Vomiting Oxcarbazepine (Oxcarbazepine 300 Mg Tablet) 300 mg PO BID [facility] Last Admin: 01/19/25 08:08 Dose: 300 mg Propranolol HCl (Propranolol Hcl 20 Mg Tablet) 20 mg PO TID [facility]; Protocol Last Admin: 01/19/25 15:42 Dose: 20 mg Thiamine HCl (Thiamine Hcl 100 Mg Tablet) 100 mg PO DAILY [facility] Last Admin: 01/19/25 08:08 Dose: 100 mg Trazodone HCl (Trazodone Hcl 50 Mg Tablet) 50 mg PO BEDTIME MRX1 PRN PRN Reason: Insomnia Last Admin: 01/17/25 22:13 Dose: 50 mg Allergies Allergies Allergy/AdvReac Type Severity Reaction Status Date / Time No Known Allergies Allergy Verified 01/11/25 18:31 Assessment & Plan Assessment & Plan (1) Depression: Status: Acute Code(s): F32.A - Depression, unspecified Assessment and Plan: (r/o substance induced mood d/o vs MDD) (2) Posttraumatic stress disorder: Status: Acute Code(s): F43.10 - Post-traumatic stress disorder, unspecified (3) Opioid use disorder: Status: Acute Code(s): F11.90 - Opioid use, unspecified, uncomplicated (4) Alcohol use disorder: Status: Acute Code(s): F10.90 - Alcohol use, unspecified, uncomplicated (5) Cocaine use disorder: Status: Acute Code(s): F14.10 - Cocaine abuse, uncomplicated (6) Methamphetamine abuse: Status: Acute Code(s): F15.10 - Other stimulant abuse, uncomplicated Plan Mr. Salazar is a 39 yo SWM with h/o depression, previous bipolar dx, PTSD and polysubstance use d/o (methamphetamine, cocaine, opioid, and ETOH use), treated HCV, who self presented to the [facility] due to SI with a plan to ovedose, vague HI and substance use. Pt endorses current SI in the setting of homelessness, relationship stressors, difficulty getting employment due to criminal hx and polysubstance use. He denies current HI but admits to having HI in the past towards 'people who piss me off'. He has already been started on monitoring for ETOH w/d and opioid w/d on CIWA and COWS. Plan: Admitted to M3 for safety and stabilization Legal status- CV 15 min safety checks Milieu therapy Medical admission H&P completed by hospitalist, reviewed by t/w ETOH w/d - lorazepam prn per CIWA Opioid w/d- prn clonidine per COWS Psychotropic medication- Pt is currently only interested in starting a benzo, which t/w informed him is not appropriate, given recent h/o polysubstance use. He declines any other meds but t/w advised him that prn olanzapine (which he hasn't tried) and hydroxyzine are available if he changes his mind. 01/14: Pt requested re-starting methadone temporarily to get thru opioid w/d but doesn't want to take it long-term. Consulted addiction medicine, who recommended starting pt on 20 mg methadone. Input much appreciated. Ordered bentyl for stomach cramps prn. D/C'd CIWA, switched to lorazepam 1 mg q 6 hrs prn for objective signs of ETOH w/d. 01/15: Pt had episode of agitation last night when unable to get his meds as quickly as he wanted. He was agreeable w/ starting olanzapine 5 mg bid, as the prn last night had helped calm him down. Will start propranolol 10 mg tid for aggression/anxiety and for tx of HTN. Vital switched to unit standards. *PRN lorazepam ordered only for signs of ETOH w/d. 01/16: Just started Olanzapine. continue current management and treatment plan. 01/17: Start Trileptal 300 mg BID. Consider titration depending on tolerability. 01/18: Mood has improved overall but remains anxious/depressed. Denies med SE. D/C'd prn lorazepam (for ETOH w/d). 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 Pt is agreeable w/ plan to titrate olanzapine to 10 mg starting tonight, continue 5 mg qam and to titrate propranolol to 20 mg tid for anger, anxiety, and HTN. 01/19: Pt denies significant improvement in depression/anxiety but has been able to tolerating spending most of the day in the milieu and attending groups. Anger has improved. HTN currently controlled w/ propranolol 20 mg tid (also rx'd for agitation/anxiety). Tolerated methadone taper to 10 mg. Will taper to 5 mg tomorrow. Patient educated on: medication risk/benefits and therapeutic strategies Informed Consent: understands Reason for continued inpatient stay Substantial Risk for: med/psych decompensation Time Spent With Patient Time: Total time managing care of this patient today ____ minutes.
[2025-01-19 22:00] VITALS: BP 129/79; PULSE 62; RESP 18; TEMP 36.8; O2SAT 99
[2025-01-20 07:39] VITALS: BP 136/83; PULSE 72; RESP 20; TEMP 36.3; O2SAT 98
[2025-01-20] MEDS: methADONE HCl 20 MG/2 ML ORAL.CONC 5 MG PO (08:17)
[2025-01-20] MEDS: Nicotine Polacrilex Lozenge 4 MG LOZENGE BUCCAL ×6 (08:18→21:40)
--- NOTE | 2025-01-20 09:52 | HO.PSYCHPN ---
Subjective Subjective Date of Service: 01/20/25 Reason For Visit: SI Subjective Notes: Conditional Voluntary Interim History: Chart reviewed, case discussed with tx team Pt CARLOS- Pt has been declined from [facility] due to h/o aggression and episode of throwing a chair early in his admission here. No behavioral issues this wk Visible in milieu today Attended groups T/W met w/ pt individually this am. He reported feeling 'okay'. Denied SI. Denied med SE. Met w/ pt along with SW to discuss d/c planning and informed pt that the above programs had not accepted him due to the h/o aggression/agitation. T/W validated that pt's behavior has significantly improved since the incident last wk. CARLOS provided pt with a list of resources to call on his own for substance use tx and pt agreed to call. Tapered to 5 mg of methadone today. denies w/d sx Mental Status Exam Mental Status Exam Narrative: Appearance: Casually dressed. Grooming/hygiene wnl. Eye contact wnl Attitude: Cooperative Speech: Fluent and wnl in regard to volume, tone, prosody Motor activity: Calm and without any tics, tremors or dyskinesias. Steady gait Mood: 'okay' Affect: appropriate, constricted Thought process: goal directed and without evidence of formal thought disorder Thought content: Denies SI/violent ideation Perception: does not appear to respond to internal stimuli Alert/oriented in all spheres Cognition grossly intact Insight: intact Judgment: intact Diagnostics Vital Signs (24Hr): Vital Signs - 24 hr 01/19/25 15:42 01/19/25 22:00 01/20/25 07:39 Temperature 98.2 F 97.4 F Pulse Rate 59 62 72 Respiratory Rate 18 20 Blood Pressure 123/72 129/79 136/83 Pulse Oximetry 99 98 Oxygen Delivery Method Room Air Room Air BMI result Body Mass Index 26.5 Labs 01/11/25 19:12 01/11/25 19:12 Medications Medications Current Medications Al Hydroxide/Mg Hydroxide (Magnesium Hydrox/Alum Hydrox 30 Ml Oral.Susp) 30 ml PO Q6H PRN PRN Reason: Heartburn/Nausea Baclofen (Baclofen 10 Mg Tablet) 10 mg PO TID PRN PRN Reason: Opiate W/D Last Admin: 01/17/25 08:46 Dose: 10 mg Clonidine HCl (Clonidine Hcl 0.1 Mg Tablet) 0.1 mg PO Q4H PRN; Protocol PRN Reason: Opiate W/D symptoms Last Admin: 01/16/25 20:10 Dose: 0.1 mg Dicyclomine HCl (Dicyclomine Hcl 10 Mg Capsule) 10 mg PO QIDACHS PRN PRN Reason: cramps Last Admin: 01/16/25 20:10 Dose: 10 mg Hydroxyzine HCl (Hydroxyzine Hcl 25 Mg Tablet) 25 mg PO Q6H PRN PRN Reason: mild anxiety Last Admin: 01/16/25 20:10 Dose: 25 mg Magnesium Hydroxide (Milk Of Magnesia 30 Ml Oral.Susp) 30 ml PO DAILY PRN PRN Reason: Constipation Nicotine Polacrilex (Nicotine Polacrilex 2 Mg Gum) 4 mg BUCCAL Q2H PRN PRN Reason: Nicotine Cravings Last Admin: 01/19/25 17:09 Dose: 4 mg Nicotine Polacrilex (Nicotine Polacrilex Lozenge 4 Mg Lozenge) 4 mg BUCCAL Q2H PRN PRN Reason: Nicotine Cravings Last Admin: 01/20/25 08:18 Dose: 4 mg Olanzapine (Olanzapine 5 Mg Tablet) 5 mg PO Q4H PRN PRN Reason: agitation/severe anxiety Last Admin: 01/19/25 17:09 Dose: 5 mg Olanzapine (Olanzapine 10 Mg Tablet) 10 mg PO BEDTIME KATHIA Last Admin: 01/19/25 22:08 Dose: 10 mg Olanzapine (Olanzapine 5 Mg Tablet) 5 mg PO DAILY KATHIA Last Admin: 01/20/25 08:18 Dose: 5 mg Ondansetron HCl (Ondansetron Odt 4 Mg Tab.Rapdis) 4 mg TRANSLINGU Q6H PRN PRN Reason: Nausea and Vomiting Oxcarbazepine (Oxcarbazepine 300 Mg Tablet) 300 mg PO BID KATHIA Last Admin: 01/20/25 08:18 Dose: 300 mg Propranolol HCl (Propranolol Hcl 20 Mg Tablet) 20 mg PO TID KATHIA; Protocol Last Admin: 01/20/25 08:18 Dose: 20 mg Thiamine HCl (Thiamine Hcl 100 Mg Tablet) 100 mg PO DAILY KATHIA Last Admin: 01/20/25 08:18 Dose: 100 mg Trazodone HCl (Trazodone Hcl 50 Mg Tablet) 50 mg PO BEDTIME MRX1 PRN PRN Reason: Insomnia Last Admin: 01/19/25 22:08 Dose: 50 mg Allergies Allergies Allergy/AdvReac Type Severity Reaction Status Date / Time No Known Allergies Allergy Verified 01/11/25 18:31 Assessment & Plan Assessment & Plan (1) Depression: Status: Acute Code(s): F32.A - Depression, unspecified Assessment and Plan: (r/o substance induced mood d/o vs MDD) (2) Posttraumatic stress disorder: Status: Acute Code(s): F43.10 - Post-traumatic stress disorder, unspecified (3) Opioid use disorder: Status: Acute Code(s): F11.90 - Opioid use, unspecified, uncomplicated (4) Alcohol use disorder: Status: Acute Code(s): F10.90 - Alcohol use, unspecified, uncomplicated (5) Cocaine use disorder: Status: Acute Code(s): F14.10 - Cocaine abuse, uncomplicated (6) Methamphetamine abuse: Status: Acute Code(s): F15.10 - Other stimulant abuse, uncomplicated Plan Mr. Salazar is a 39 yo SWM with h/o depression, previous bipolar dx, PTSD and polysubstance use d/o (methamphetamine, cocaine, opioid, and ETOH use), treated HCV, who self presented to the [facility] ED due to SI with a plan to ovedose, vague HI and substance use. Pt endorses current SI in the setting of homelessness, relationship stressors, difficulty getting employment due to criminal hx and polysubstance use. He denies current HI but admits to having HI in the past towards 'people who piss me off'. He has already been started on monitoring for ETOH w/d and opioid w/d on CIWA and COWS. Plan: Admitted to for safety and stabilization Legal status- CV 15 min safety checks Milieu therapy Medical admission H&P completed by hospitalist, reviewed by t/w ETOH w/d - lorazepam prn per CIWA Opioid w/d- prn clonidine per COWS Psychotropic medication- Pt is currently only interested in starting a benzo, which t/w informed him is not appropriate, given recent h/o polysubstance use. He declines any other meds but t/w advised him that prn olanzapine (which he hasn't tried) and hydroxyzine are available if he changes his mind. 01/14: Pt requested re-starting methadone temporarily to get thru opioid w/d but doesn't want to take it long-term. Consulted addiction medicine, who recommended starting pt on 20 mg methadone. Input much appreciated. Ordered bentyl for stomach cramps prn. D/C'd CIWA, switched to lorazepam 1 mg q 6 hrs prn for objective signs of ETOH w/d. 01/15: Pt had episode of agitation last night when unable to get his meds as quickly as he wanted. He was agreeable w/ starting olanzapine 5 mg bid, as the prn last night had helped calm him down. Will start propranolol 10 mg tid for aggression/anxiety and for tx of HTN. Vital switched to unit standards. *PRN lorazepam ordered only for signs of ETOH w/d. 01/16: Just started Olanzapine. continue current management and treatment plan. 01/17: Start Trileptal 300 mg BID. Consider titration depending on tolerability. 01/18: Mood has improved overall but remains anxious/depressed. Denies med SE. D/C'd prn lorazepam (for ETOH w/d). Pt will taper the methadone to 10 mg tomorrow am (per his request)- lower dose ordered by addiction medicine ADMISSIONS ADVISOR. Pt is agreeable w/ plan to titrate olanzapine to 10 mg starting tonight, continue 5 mg qam and to titrate propranolol to 20 mg tid for anger, anxiety, and HTN. 01/19: Pt denies significant improvement in depression/anxiety but has been able to tolerating spending most of the day in the milieu and attending groups. Anger has improved. HTN currently controlled w/ propranolol 20 mg tid (also rx'd for agitation/anxiety). Tolerated methadone taper to 10 mg. Will taper to 5 mg tomorrow. 01/20: Pt received 5 mg methadone today, which was his last dose for the taper. Will otherwise continue current med regimen/tx plan. Pt has been declined from 3 recovery programs and was given a list of resources to call on his own, which he plasn to do. Patient educated on: substance abuse and therapeutic strategies Informed Consent: understands Reason for continued inpatient stay Substantial Risk for: med/psych decompensation Time Spent With Patient Time: Total time managing care of this patient today ____ minutes.
[2025-01-20 14:49] VITALS: BP 144/90; PULSE 59
[2025-01-20 21:30] VITALS: BP 125/76; PULSE 60; RESP 16; TEMP 36.7; O2SAT 97
[2025-01-21 07:20] VITALS: BP 114/75; PULSE 51; RESP 14; TEMP 36.7; O2SAT 98
[2025-01-21] MEDS: Nicotine Polacrilex Lozenge 4 MG LOZENGE BUCCAL ×7 (08:06→21:36)
[2025-01-21 08:45] VITALS: BP 124/73; PULSE 51
[2025-01-21 10:44] VITALS: BMI 27.8
[2025-01-21 14:36] VITALS: BP 139/90; PULSE 66
--- NOTE | 2025-01-21 19:08 | HO.PSYCHPN ---
Subjective Subjective Date of Service: 01/21/25 Reason For Visit: SI Subjective Notes: Conditional Voluntary Interim History: Chart reviewed. Case discussed in team No behavioral issues Tapered off methadone without any issue Med adherent Visible in milieu. Attending groups. Interacting appropriately w/ staff and peers T/W met w/ pt multiple times today. His geriatric social worker, dad and his sister have helped him find resources to support him in his recovery. He was accepted to a [place] residential program. His dad completed the program and has been sober x 1 yr. Pt feels good about this plan and is future oriented. He denies SI, violent ideation, AHVH. Plan- D/C at 8:30 am tomororw, 01/22 Diagnostics Vital Signs (24Hr): Vital Signs - 24 hr 01/20/25 21:30 01/21/25 07:20 01/21/25 08:45 Temperature 98.1 F 98.1 F Pulse Rate 60 51 51 Respiratory Rate 16 14 Blood Pressure 125/76 114/75 124/73 Pulse Oximetry 97 98 Oxygen Delivery Method Room Air Room Air 01/21/25 14:36 Temperature Pulse Rate 66 Respiratory Rate Blood Pressure 139/90 H Pulse Oximetry Oxygen Delivery Method BMI result Body Mass Index 27.8 Labs 01/11/25 19:12 01/11/25 19:12 Medications Medications Current Medications Al Hydroxide/Mg Hydroxide (Magnesium Hydrox/Alum Hydrox 30 Ml Oral.Susp) 30 ml PO Q6H PRN PRN Reason: Heartburn/Nausea Baclofen (Baclofen 10 Mg Tablet) 10 mg PO TID PRN PRN Reason: Opiate W/D Last Admin: 01/17/25 08:46 Dose: 10 mg Clonidine HCl (Clonidine Hcl 0.1 Mg Tablet) 0.1 mg PO Q4H PRN; Protocol PRN Reason: Opiate W/D symptoms Last Admin: 01/16/25 20:10 Dose: 0.1 mg Dicyclomine HCl (Dicyclomine Hcl 10 Mg Capsule) 10 mg PO QIDACHS PRN PRN Reason: cramps Last Admin: 01/16/25 20:10 Dose: 10 mg Hydroxyzine HCl (Hydroxyzine Hcl 25 Mg Tablet) 25 mg PO Q6H PRN PRN Reason: mild anxiety Last Admin: 01/16/25 20:10 Dose: 25 mg Magnesium Hydroxide (Milk Of Magnesia 30 Ml Oral.Susp) 30 ml PO DAILY PRN PRN Reason: Constipation Nicotine Polacrilex (Nicotine Polacrilex 2 Mg Gum) 4 mg BUCCAL Q2H PRN PRN Reason: Nicotine Cravings Last Admin: 01/21/25 18:05 Dose: 4 mg Nicotine Polacrilex (Nicotine Polacrilex Lozenge 4 Mg Lozenge) 4 mg BUCCAL Q2H PRN PRN Reason: Nicotine Cravings Last Admin: 01/21/25 17:08 Dose: 4 mg Olanzapine (Olanzapine 5 Mg Tablet) 5 mg PO Q4H PRN PRN Reason: agitation/severe anxiety Last Admin: 01/20/25 11:13 Dose: 5 mg Olanzapine (Olanzapine 10 Mg Tablet) 10 mg PO BEDTIME KATHIA Last Admin: 01/20/25 21:40 Dose: 10 mg Olanzapine (Olanzapine 5 Mg Tablet) 5 mg PO DAILY [facility] Last Admin: 01/21/25 08:45 Dose: 5 mg Ondansetron HCl (Ondansetron Odt 4 Mg Tab.Rapdis) 4 mg TRANSLINGU Q6H PRN PRN Reason: Nausea and Vomiting Oxcarbazepine (Oxcarbazepine 300 Mg Tablet) 300 mg PO BID [facility] Last Admin: 01/21/25 08:45 Dose: 300 mg Propranolol HCl (Propranolol Hcl 20 Mg Tablet) 20 mg PO TID KATHIA; Protocol Last Admin: 01/21/25 14:40 Dose: 20 mg Thiamine HCl (Thiamine Hcl 100 Mg Tablet) 100 mg PO DAILY KATHIA Last Admin: 01/21/25 08:45 Dose: 100 mg Trazodone HCl (Trazodone Hcl 50 Mg Tablet) 50 mg PO BEDTIME MRX1 PRN PRN Reason: Insomnia Last Admin: 01/19/25 22:08 Dose: 50 mg Allergies Allergies Allergy/AdvReac Type Severity Reaction Status Date / Time No Known Allergies Allergy Verified 01/11/25 18:31 Assessment & Plan Assessment & Plan (1) Depression: Status: Acute Code(s): F32.A - Depression, unspecified Assessment and Plan: (r/o substance induced mood d/o vs MDD) (2) Posttraumatic stress disorder: Status: Acute Code(s): F43.10 - Post-traumatic stress disorder, unspecified (3) Opioid use disorder: Status: Acute Code(s): F11.90 - Opioid use, unspecified, uncomplicated (4) Alcohol use disorder: Status: Acute Code(s): F10.90 - Alcohol use, unspecified, uncomplicated (5) Cocaine use disorder: Status: Acute Code(s): F14.10 - Cocaine abuse, uncomplicated (6) Methamphetamine abuse: Status: Acute Code(s): F15.10 - Other stimulant abuse, uncomplicated Plan Mr. Salazar is a 39 yo SWM with h/o depression, previous bipolar dx, PTSD and polysubstance use d/o (methamphetamine, cocaine, opioid, and ETOH use), treated HCV, who self presented to the [facility] ED due to SI with a plan to ovedose, vague HI and substance use. Pt endorses current SI in the setting of homelessness, relationship stressors, difficulty getting employment due to criminal hx and polysubstance use. He denies current HI but admits to having HI in the past towards 'people who piss me off'. He has already been started on monitoring for ETOH w/d and opioid w/d on CIWA and COWS. Plan: Admitted to [facility] for safety and stabilization Legal status- CV 15 min safety checks Milieu therapy Medical admission H&P completed by hospitalist, reviewed by t/w ETOH w/d - lorazepam prn per CIWA Opioid w/d- prn clonidine per COWS Psychotropic medication- Pt is currently only interested in starting a benzo, which t/w informed him is not appropriate, given recent h/o polysubstance use. He declines any other meds but t/w advised him that prn olanzapine (which he hasn't tried) and hydroxyzine are available if he changes his mind. 01/14: Pt requested re-starting methadone temporarily to get thru opioid w/d but doesn't want to take it long-term. Consulted addiction medicine, who recommended starting pt on 20 mg methadone. Input much appreciated. Ordered bentyl for stomach cramps prn. D/C'd CIWA, switched to lorazepam 1 mg q 6 hrs prn for objective signs of ETOH w/d. 01/15: Pt had episode of agitation last night when unable to get his meds as quickly as he wanted. He was agreeable w/ starting olanzapine 5 mg bid, as the prn last night had helped calm him down. Will start propranolol 10 mg tid for aggression/anxiety and for tx of HTN. Vital switched to unit standards. *PRN lorazepam ordered only for signs of ETOH w/d. 01/16: Just started Olanzapine. continue current management and treatment plan. 01/17: Start Trileptal 300 mg BID. Consider titration depending on tolerability. 01/18: Mood has improved overall but remains anxious/depressed. Denies med SE. D/C'd prn lorazepam (for ETOH w/d). Pt will taper the methadone to 10 mg tomorrow am (per his request)- lower dose ordered by addiction medicine COMMISSIONING AGENT. Pt is agreeable w/ plan to titrate olanzapine to 10 mg starting tonight, continue 5 mg qam and to titrate propranolol to 20 mg tid for anger, anxiety, and HTN. 01/19: Pt denies significant improvement in depression/anxiety but has been able to tolerating spending most of the day in the milieu and attending groups. Anger has improved. HTN currently controlled w/ propranolol 20 mg tid (also rx'd for agitation/anxiety). Tolerated methadone taper to 10 mg. Will taper to 5 mg tomorrow. 01/20: Pt received 5 mg methadone today, which was his last dose for the taper. Will otherwise continue current med regimen/tx plan. Pt has been declined from 3 recovery programs and was given a list of resources to call on his own, which he plasn to do. Time Spent With Patient Time: Total time managing care of this patient today ____ minutes.
[2025-01-21 21:30] VITALS: BP 132/83; PULSE 58; RESP 16; TEMP 36.3; O2SAT 98
[2025-01-21 21:33] VITALS: BP 132/83
[2025-01-21 21:34] VITALS: BP 132/83; PULSE 58
[2025-01-22 07:37] VITALS: BP 111/70; PULSE 50
[2025-01-22 07:57] VITALS: BP 111/70; PULSE 50; RESP 20; TEMP 36.2; O2SAT 100
[2025-01-22] MEDS: Nicotine Polacrilex Lozenge 4 MG LOZENGE BUCCAL (08:12)
--- NOTE | 2025-01-22 16:31 | PM.PSYDC ---
DS: Providers Provider Date of admission: 01/12/25 13:38 Date of discharge: 01/22/25 Primary care physician: None Physician Consults: 01/13/25 11:19 Consult to Hospitalist Routine Comment: Consulting Provider: [facility] Reason For Exam: Admission H&P 01/14/25 10:38 Addiction Medicine Provider Routine Consulting Provider: Addiction Covering Reason for consultation: opioid use d/o, previously on methadone. Wants to re-start methadone Has provider been notified: Yes DS: Diagnosis Discharge Diagnosis (1) Depression: Status: Acute (2) Posttraumatic stress disorder: Status: Acute (3) Opioid use disorder: Status: Acute (4) Alcohol use disorder: Status: Acute (5) Cocaine use disorder: Status: Acute (6) Methamphetamine abuse: Status: Acute DS: Medications Discharge Medications Home Medications: Previous Rx's ?Medication ?Instructions ?Recorded hydroxyzine HCl 25 mg tablet 25 mg PO BID PRN mild anxiety 30 01/22/25 days #60 tabs nicotine (polacrilex) 2 mg gum 4 mg buccal Q2H PRN Nicotine 01/22/25 Cravings 30 days #120 ea olanzapine 10 mg tablet 10 mg PO BEDTIME 30 days #30 tabs 01/22/25 olanzapine 5 mg tablet See Rx Instructions .Route 01/22/25 .COMPLEX 30 days #30 tabs oxcarbazepine 300 mg tablet 300 mg PO BID 30 days #60 tabs 01/22/25 propranolol 20 mg tablet 20 mg PO TID 30 days #90 tabs 01/22/25 thiamine mononitrate (vit B1) 100 100 mg PO DAILY 30 days #30 tabs 01/22/25 mg tablet trazodone 50 mg tablet 50 mg PO BEDTIME MRX1 PRN Insomnia 01/22/25 30 days #60 tabs DS: Summary Time Spent with Patient Time attestation: Total time managing care of this patient today ____ minutes. Discharge Plan Discharge Anticipated Discharge Date/Time: 01/22/25 08:30 Patient Disposition: Xfer Inpatient Rehab Fac Discharge Diagnosis: Depressive disorder, unspecified (r/o substance induced depressive d/o, r/o MDD) Opioid withdrawal, resolved Alcohol withdrawal, resolved Opioid use disorder Alcohol use disorder Stimulant use disorder (cocaine and methamphetamine) Complex PTSD Nicotine use disorder [facility]errals: [facility] ([facility] [Other] - 1 Week Referral Note: *You have been accepted to the [facility] program listed above. Please follow up with your care team at the program regarding aftercare planning. [facility] [Provider Group] - 1 Week Referral Note: 01-21-25 [facility] was added to patients chart. Please call [phone] to schedule a follow up appt within 7-10 days of discharge. No release or PCP on file. Discharge Medications: New nicotine (polacrilex) 2 mg Gum 4 mg buccal Q2H PRN (Reason: Nicotine Cravings) 30 Days Qty: 120 0RF propranolol 20 mg Tablet 20 mg PO TID 30 Days Qty: 90 0RF Protocol: Hold for SBP/HR < HOLD for SBP < : 90 HOLD for HR < : 60 hydroxyzine HCl 25 mg Tablet 25 mg PO BID PRN (Reason: mild anxiety) 30 Days Qty: 60 0RF olanzapine 10 mg Tablet 10 mg PO BEDTIME 30 Days Qty: 30 0RF olanzapine 5 mg Tablet See Rx Instructions .ROUTE .COMPLEX 30 Days Qty: 30 0RF Rx Instructions: Take 1 tab po qam. May take 1 additional tab po qd prn for agitation and/or severe anxiety oxcarbazepine 300 mg Tablet 300 mg PO BID 30 Days Qty: 60 0RF trazodone 50 mg Tablet 50 mg PO BEDTIME MRX1 PRN (Reason: Insomnia) 30 Days Qty: 60 0RF thiamine mononitrate (vit B1) 100 mg Tablet 100 mg PO DAILY 30 Days Qty: 30 0RF Discharge Orders: Discharge Order (Routine); Ordered 01/22/25 Ordered By: Shira Wilder Diet: Regular diet Activity on Discharge: No Restrictions Stand Alone Forms: Patient Portal Discharge page, Community Support Print Language: Korean Care Plan Goals: Maintain safe behaviors Practice coping skills Take medications as prescribed Continue to pursue sobriety Maintain regular follow-ups with your outpatient providers Health Concerns: Opioid withdrawal-resolved Alcohol withdrawal- resolved Opioid use disorder Alcohol use disorder Cocaine use disorder Plan of Treatment: Attend [place] residential substance use treatment program Follow up with your psychiatric provider, PCP and other outpatient providers Take your medication as prescribed Assessment: Pt has denied SI since the day after his admission and has not engaged in any self harming behaviors. He is future oriented and motivated to continue working on his mental health and sobriety. Pt has denied violent ideation throughout his admission. He has a history of anger and aggressive behaviors in the setting of complex trauma and polysubstance use disorder. He had one episode of agitation early in his admission. He has interacted appropriately with staff and peers in the milieu and groups since then. His anger and impulse control have significantly improved with olanzapine, oxcarbazepine, milieu therapy, and treatment of opioid and alcohol withdrawal. Pt has improved insight and judgment. Pt is not currently at high risk of harm to self or others. He has a safety plan that includes presenting to the closest ER or calling 911 if feeling unsafe. Patient Instructions: Depression (ED), Polysubstance Use Disorder (ED) Discharge Date/Time: 01/22/25 09:47
== END 2025-01-22 09:47 | DRG 751 ==
LOC: HO.ED 21:03 → HO.PADLT16 01-12 13:58
PROVIDERS: Physician Assistant Medical; Admitting Provider Psychiatry & Neurology Psychiatry; Emergency Provider Emergency Medicine; Visit Provider Psychiatry & Neurology Psychiatry
DX: F32.9 Major depressive disorder, single episode, unspecified (principal); R45.850 Homicidal ideations; R45.851 Suicidal ideations; F17.210 Nicotine dependence, cigarettes, uncomplicated; F11.90 Opioid use, unspecified, uncomplicated; F43.10 Post-traumatic stress disorder, unspecified; F10.939 Alcohol use, unspecified with withdrawal, unspecified; F14.10 Cocaine abuse, uncomplicated; F15.10 Other stimulant abuse, uncomplicated; Z71.6 Tobacco abuse counseling; Z79.899 Other long term (current) drug therapy
CPT/HCPCS: 36415; 80053; 80061; 80143; 80179; 80307; 81001; 83036; 85025; 93005; 99285; S9485

== ENCOUNTER → 2025-01-11 18:29 | Outpatient (BNV) | payer MEDICAID, SELFPAY | PROVIDERS: Emergency Provider Emergency Medicine; Visit Provider Internal Medicine Cardiovascular Disease | DX: Z13.6 Encounter for screening for cardiovascular disorders (principal) | CPT/HCPCS: 93010 ==

== ENCOUNTER → 2025-01-12 13:38 | Outpatient (BNV) | payer MEDICAID, SELFPAY | PROVIDERS: Admitting Provider Psychiatry & Neurology Psychiatry; Emergency Provider Emergency Medicine; Visit Provider Nurse Practitioner Family | DX: Z00.8 Encounter for other general examination (principal) | CPT/HCPCS: 99499 ==

== ENCOUNTER → 2025-01-12 13:38 | Outpatient (BNV) | payer OTHER, SELFPAY | PROVIDERS: Admitting Provider Psychiatry & Neurology Psychiatry; Emergency Provider Emergency Medicine; Visit Provider Psychiatry & Neurology Psychiatry | DX: F32.2 Major depressive disorder, single episode, severe without psychotic features (principal); F11.90 Opioid use, unspecified, uncomplicated; F10.90 Alcohol use, unspecified, uncomplicated; F43.11 Post-traumatic stress disorder, acute; F14.10 Cocaine abuse, uncomplicated; F15.10 Other stimulant abuse, uncomplicated | CPT/HCPCS: 90792; 99232 ==